=== PATIENT | male | born 1950 | race Caucasian/White ===

== ENCOUNTER 2018-01-22 19:12 | Emergency (ER) | payer MEDICARE, OTHER ==
[~2018-01-22] VITALS: Ht 182.9 cm; Wt 95.3 kg
[2018-01-22] MEDS ORDERED: ONDANSETRON ODT 4 MG TAB PO ONE (20:45)
[2018-01-22] MEDS ORDERED: MORPHINE SULFATE 4 MG/ML SYR/VIAL IM ONE (20:45)
[2018-01-22] MEDS ORDERED: MORPHINE SULFATE 4 MG/ML SYR/VIAL IV ONE (21:30)
[2018-01-22] MEDS ORDERED: THIAMINE 100mg/ml INJ (200mg/2ml VIAL) IV ONE (21:30)
[2018-01-22 22:01] LABS: Basophils # (auto) 0.1 uL; Basophils % (auto) 0.6 % (0.0-2.0); Eosinophils # (auto) 0 uL; Lymphocytes # (auto) 0.6 uL; Monocytes # (auto) 0.7 uL
[2018-01-22 22:02] LABS: Eosinophils % (auto) 0.4 % (0.0-7.0); Hematocrit 46.5 % (41.0-53.0); Hemoglobin 15.9 g/dL (13.5-17.5); Lymphocytes % (auto) 5.9 % (10.0-50.0); Mean Corpuscular Hemoglobin 37.9 pg (28.0-32.0); Mean Corpuscular Hgb Conc. 34.2 g/dL (32.0-36.0); Mean Corpuscular Volume 110.8 fL (80.0-100.0); Monocytes % (auto) 7.3 % (0.0-12.0); Neutrophils # (auto) 8.2 uL; Neutrophils % (auto) 85.8 % (37.0-80.0); Nucleated Red Blood Cells % 0.2 %; Platelet Count (auto) 191 10^3/uL (140-450); Red Blood Cells 4.19 10^6/uL (4.5-5.90); Red Cell Distribution Width 14.2 % (11.8-14.3); White Blood Cell 9.5 10^3/uL (4.4-10.8)
[2018-01-22 22:23] LABS: INR 0.94 (0.9-1.15); Prothrombin Time 10.1 sec (9.27-12.13)
[2018-01-22 22:24] LABS: Albumin 3.4 g/dL (3.4-5.0); BUN/Creatinine Ratio 14.6; Calcium 8.7 mg/dL (8.5-10.1); Magnesium 1.8 mg/dL (1.6-2.6); Potassium 3.3 mmol/L (3.5-5.1)
[2018-01-22 22:30] LABS: Bilirubin, Total 0.6 mg/dL (0.2-1.0); Total Protein 6.9 g/dL (6.4-8.2)
[2018-01-22 23:34] VITALS: BP 162/98
[2018-01-23] MEDS ORDERED: cloNIDine HCL 0.1 MG TAB PO ONE (00:15)
== END 2018-01-22 23:45 | disposition short-term general hospital (02) ==
LOC: EDBD 19:12 → ER 19:22
DX: S12.110A Anterior displaced Type II dens fracture, initial encounter for closed fracture (principal); J44.9 Chronic obstructive pulmonary disease, unspecified; F10.10 Alcohol abuse, uncomplicated; V43.52XA Car driver injured in collision with other type car in traffic accident, initial encounter; Y93.89 Activity, other specified; Y92.89 Other specified places as the place of occurrence of the external cause; Y99.8 Other external cause status
CPT/HCPCS: 36415; 70450; 71045; 72125; 80053; 80320; 83735; 83880; 84484; 85025; 85379; 85610; 85730; 96372; 96374; 96375; 99285; J2270; J3411; Q0162

== ENCOUNTER 2019-03-28 13:36 | Inpatient (IN) | payer MEDICARE, OTHER ==
[~2019-03-28] VITALS: Ht 182.9 cm; Wt 95.2 kg
[2019-03-28] MEDS ORDERED: SODIUM CHLORIDE 0.9% 1,000 ML IV ONE (13:46)
[2019-03-28] MEDS ORDERED: methylPREDNISolone SOD SUCC 125 MG/2 ML VL IV ONE (14:00)
[2019-03-28] MEDS ORDERED: ALBUTEROL SULF 2.5 MG/0.5ML(0.5%) NEB SOLN NEB ONE (14:00)
[2019-03-28] MEDS ORDERED: cefTRIAXone 1GM/50ML D5W 50 ML IV ONE (14:00)
[2019-03-28] MEDS ORDERED: IPRATROPIUM BROM 0.5 MG/2.5ML INH SOL NEB ONE (14:00)
[2019-03-28 14:18] LABS: Basophils # (auto) 0.1 uL; Eosinophils # (auto) 0.1 uL; Eosinophils % (auto) 0.9 % (0.0-7.0); Hematocrit 51.4 % (41.0-53.0); Hemoglobin 17.1 g/dL (13.5-17.5); Monocytes # (auto) 0.8 uL; Monocytes % (auto) 9.9 % (0.0-12.0); White Blood Cell 8.1 10^3/uL (4.4-10.8)
[2019-03-28 14:21] LABS: Basophils % (auto) 0.7 % (0.0-2.0); Lymphocytes # (auto) 0.8 uL; Lymphocytes % (auto) 10.4 % (10.0-50.0); Mean Corpuscular Hemoglobin 36.2 pg (28.0-32.0); Mean Corpuscular Hgb Conc. 33.2 g/dL (32.0-36.0); Mean Corpuscular Volume 108.9 fL (80.0-100.0); Neutrophils # (auto) 6.4 uL; Neutrophils % (auto) 78.1 % (37.0-80.0); Nucleated Red Blood Cells % 0.1 %; Platelet Count (auto) 302 10^3/uL (140-450); Red Blood Cells 4.72 10^6/uL (4.5-5.90); Red Cell Distribution Width 14.2 % (11.8-14.3)
[2019-03-28 14:38] LABS: Albumin 3.9 g/dL (3.4-5.0); Anion Gap 5 (5-15); BUN/Creatinine Ratio 19.8; Blood Urea Nitrogen 26 mg/dL (7-18); Calcium 8.5 mg/dL (8.5-10.1); Carbon Dioxide 31 mmol/L (21-32); Chloride 104 mmol/L (98-107); GFR African American 70 mL/min; GFR Non-African American 58 mL/min; Glucose 127 mg/dL (74-106); Potassium 4.5 mmol/L (3.5-5.1); Sodium 140 mmol/L (136-145)
[2019-03-28 14:43] LABS: Alanine Aminotransferase 29 U/L (16-61); Alkaline Phosphatase 69 U/L (45-117); Aspartate Aminotransferase 21 U/L (15-37); Bilirubin, Total 0.5 mg/dL (0.2-1.0); Total Protein 7.6 g/dL (6.4-8.2)
[2019-03-28] MEDS ORDERED: traMADol HCL 50 MG TAB PO PRN (16:30)
[2019-03-28] MEDS ORDERED: PROMETHAZINE HCL 25 MG/ML 1ML IV PRN (16:30)
[2019-03-28] MEDS ORDERED: NITROGLYCERIN 0.4 MG SL TAB SL PRN (16:30)
[2019-03-28] MEDS ORDERED: ACETAMINOPHEN 500 MG TAB PO PRN (16:30)
[2019-03-28] MEDS ORDERED: ALBUTEROL SULF 2.5 MG/0.5ML(0.5%) NEB SOLN NEB PRN (16:30)
[2019-03-28] MEDS ORDERED: LORazepam 0.5 MG TAB PO PRN (16:30)
[2019-03-28] MEDS ORDERED: MORPHINE SULF INJ 2 MG/ML SYRINGE 1ML IV PRN (16:30)
[2019-03-28] MEDS ORDERED: TEMAZEPAM 15 MG CAP PO PRN (16:30)
[2019-03-28 16:40] VITALS: BP 164/83
[2019-03-28] MEDS: LEVOFLOXACIN 500MG 100 ML IV SCH (17:28)
[2019-03-28] MEDS: FUROSEMIDE 40 MG/4 ML VIAL IV SCH (17:45)
[2019-03-28] MEDS: POTASSIUM CHL 20 Meq TABLET PO SCH (17:45)
[2019-03-28] MEDS: ENALAPRIL MALEATE 2.5 MG TAB PO SCH (17:45)
[2019-03-28] MEDS: NITROGLYCERIN 0.2MG/HR TOPICAL PATCH TD SCH (17:45)
[2019-03-28] MEDS ORDERED: methylPREDNISolone SOD SUCC 40 MG/ML VL IV SCH (18:00)
--- NOTE | 2019-03-28 18:00 | NUR ---
Telemetry admit from [facility] admitted to Telemetry unit after SBAR received. Patient oriented to YU LARA, primary RN, unit, room, bed, and unit policies regarding patient care and visiting hours. Patient now on continuous telemetry monitoring, tele box # 61. Patient placed on bedside oxygen 3 L NC, and encouraged to call if they need something. All questions and concerns addressed, patient verbalized understanding. Vitals: BP 178/95, HR 76, RR 20, 02 96, 98.2, 0/10 P. Patient reports no sob at this time, will continue to monitor. Addendum: 03/29/19 at 0714 by YU LARA RN Pt reports he has not had flu or pneumonia vaccine in the last 5 years.
[2019-03-28 18:36] VITALS: BP 178/95
[2019-03-28] MEDS: ALBUTEROL SULF 2.5 MG/0.5ML(0.5%) NEB SOLN NEB SCH (19:26)
[2019-03-28] MEDS: IPRATROPIUM BROM 0.5 MG/2.5ML INH SOL NEB SCH (19:27)
--- NOTE | 2019-03-28 19:29 | NUR ---
RT NOTE PT WAS SEEN BY RT FOR HHN TX. PT TOLERATES WELL VIA MASK. NO ADVERSE REACTION NOTED. CONT ORDERED Addendum: 03/28/19 at 1929 by Chelsie Espinal RT Amended: Links added.
--- NOTE | 2019-03-28 19:35 | NUR ---
Opening Shift Note Assumed care of patient, awake and alert. No S/S of distress/SOB or pain. Instructed on POC and to call for assist PRN, will continue to monitor for changes Q1hr and PRN.
--- NOTE | 2019-03-28 19:42 | NUR ---
ENDORSED CARE TO NIGHT ANTONINO DE LA GARZA. FREDERIC NOTIFIED OF PT BP, URINALYSIS AND RESPIRATORY CULTURE NEEDED, AND LEVAQUIN NEEDS TO BE RESTARTED.
[2019-03-28 19:58] VITALS: BP 178/95
[2019-03-28] MEDS ORDERED: cloNIDine HCL 0.1 MG TAB PO ONE (21:15)
[2019-03-28] MEDS: CARVEDILOL 3.125 MG TAB PO SCH (21:48)
[2019-03-28] MEDS: methylPREDNISolone SOD SUCC 40 MG/ML VL IV SCH (21:49)
[2019-03-28 22:38] VITALS: BP 157/82
--- NOTE | 2019-03-29 00:29 | NUR ---
RT NOTE PT WAS SEEN BY RT FOR HHN TX. PT WAS SLEEPING BUT EASILY AWAKENED. PT STATES NO TREATMENT IS NEEDED AT THIS TIME AND WILL TAKE ONE AGAIN IN THE MORNING. SITTER AT BEDSIDE WILL CALL IF TX NEEDED. HR 86, RR 16, BS CLEAR/DIM, POX 94% ON 2L NASAL CANNULA. ANTONINO DE LA GARZA NOTIFIED AND WILL CALL IF TX NEEDED BEFORE NEXT ROUNDS Addendum: 03/29/19 at 0056 by Chelsie Espinal RT Amended: Links added.
[2019-03-29] MEDS ORDERED: TIOT1AER2 IN (01:29)
[2019-03-29] MEDS ORDERED: ALBUAER3 IN (01:29)
[2019-03-29 05:39] VITALS: BP 146/77
[2019-03-29] MEDS ORDERED: INFLUENZA QUAD 2019-2020 0.5ml SYRG IM ONE (06:00)
[2019-03-29 06:23] LABS: Urine Bacteria FEW /hpf (None Seen); Urine Blood Negative /uL (Negative); Urine Specific Gravity 1.019 (1.001-1.035); Urine WBC 1 /hpf (0 - 3)
[2019-03-29] MEDS: IPRATROPIUM BROM 0.5 MG/2.5ML INH SOL NEB SCH (06:24)
[2019-03-29] MEDS: ALBUTEROL SULF 2.5 MG/0.5ML(0.5%) NEB SOLN NEB SCH (06:24)
[2019-03-29] MEDS ORDERED: PNEUMOCOCCAL VACC POLYS 25 MCG/0.5 ML VIAL IM ONE (07:15)
--- NOTE | 2019-03-29 07:48 | NUR ---
PT RESTING IN BED, NO DISTRESS NOTED. PT UPDATED ON PLAN OF CARE. PT REPORTS NO PAIN OR SOB AT THIS TIME. RESTARTED FLUID, IV BEGAN LEAKING. IV DC'D AND PRESSURE DRESSING APPLIED. PT REPORTS HE DOES NOT WANT ANOTHER IV. PT REPORTS HE IS LEAVING TODAY, "NO MATTER WHAT." HE REPORTS, HE "HAS THINGS TO DO AT HOME." EDUCATED PATIENT HE NEEDS AN ABX IV THIS MORNING, PT REFUSED IV AGAIN. WILL REQUEST PO ABX FROM MD. PT ENCOURAGED TO USE CALL LIGHT PRN, WILL CONTINUE TO MONITOR.
[2019-03-29 09:21] VITALS: BP 163/94
[2019-03-29] MEDS ORDERED: ENOXAPARIN SOD 40 MG/0.4 ML SYRINGE SC SCH (10:00)
[2019-03-29] MEDS: FUROSEMIDE 40 MG/4 ML VIAL IV SCH (10:00)
[2019-03-29] MEDS ORDERED: PANTOPRAZOLE 40 MG TAB PO SCH (10:00)
[2019-03-29] MEDS: LEVOFLOXACIN 500MG 100 ML IV SCH (10:00)
[2019-03-29] MEDS: methylPREDNISolone SOD SUCC 40 MG/ML VL IV SCH (10:00)
[2019-03-29] MEDS: CARVEDILOL 3.125 MG TAB PO SCH (10:07)
[2019-03-29] MEDS: POTASSIUM CHL 20 Meq TABLET PO SCH (10:07)
[2019-03-29] MEDS: ENALAPRIL MALEATE 2.5 MG TAB PO SCH (10:07)
[2019-03-29] MEDS: NITROGLYCERIN 0.2MG/HR TOPICAL PATCH TD SCH (10:09)
--- NOTE | 2019-03-29 10:25 | NUR ---
Pt reports he has to leave by 11 am. Pt reports he will not stay any longer. He reports,"I have to try and stop my house from foreclosing today, I have until 4 pm." Pt requesting taxi voucher. Encouraged pt to stay and wait for doctor. Pt refusing. Dr. Nation notified and aware. Called warehouse incentive selector, no answer, will try again.
--- NOTE | 2019-03-29 11:05 | NUR ---
DR VAZQUEZ SAW PATIENT AND DISCUSSED POC. NEW ORDERS FOR MEDICATIONS AND DISCHARGE. CALLED HOUSE ROSIO HASKINS AND REQUESTED TAXI VOUCHER. JOZEF REPORTS PT CAN HAVE A BUS PASS. WILL CONTINUE TO MONITOR.
[2019-03-29 11:27] VITALS: BP 129/112
--- NOTE | 2019-03-29 12:00 | NUR ---
Discharge instructions given as ordered. Encourage to follow up with PMD as instructed. All questions and concerns addressed. Patient verbalized understanding. Medication reconciliation form completed and copy given to patient. Needed vaccines given. IV removed with catheter intact, pressure dressing applied. Telemetry unit returned to ICU. Patient taken to vehicle via wheelchair with all personal belongings, accompanied by staff. No distress noted at time of departure. Addendum: 03/29/19 at 1300 by YU LARA RN Pt refused social service consult. He reports he is in a hurry to go.
--- NOTE | 2019-03-29 12:00 | NUR ---
PT 02 ON RA IS 90%.
--- NOTE | 2019-03-31 08:56 | NUR ---
Weekend successfactors consultant-I did not receive a page regarding the social service consult on this patient.
== END 2019-03-29 13:22 | disposition home or self-care (01) | DRG 202 ==
LOC: EDBD 13:36 → EDUNIT# 13:36 → EDSEX 13:36 → ER 13:49 → TELE 13:50 → TELE-WESTW 18:10
PROVIDERS: ADMIT Internal Medicine; ATTEND Internal Medicine
DX: J20.9 Acute bronchitis, unspecified (principal); J44.1 Chronic obstructive pulmonary disease with (acute) exacerbation; J44.0 Chronic obstructive pulmonary disease with (acute) lower respiratory infection; I50.9 Heart failure, unspecified; E66.3 Overweight; F17.210 Nicotine dependence, cigarettes, uncomplicated; H35.30 Unspecified macular degeneration; Z86.73 Personal history of transient ischemic attack (TIA), and cerebral infarction without residual deficits; Z68.28 Body mass index [BMI] 28.0-28.9, adult; Z79.899 Other long term (current) drug therapy
CPT/HCPCS: 36415; 71045; 80053; 81001; 82550; 83880; 84484; 85025; 93005; 94640; 96365; 96375; G0378; J0696; J1956

== ENCOUNTER 2019-04-27 23:10 | Inpatient (IN) | payer OTHER ==
[~2019-04-27] VITALS: Ht 182.9 cm; Wt 71.2 kg
[~2019-04-27 23:10] MED LIST: ALBUAER3 IN; TIOT1AER2 IN
[2019-04-27 23:44] LABS: Basophils # (auto) 0.1 uL; Eosinophils # (auto) 0.2 uL; Nucleated Red Blood Cells % 0.1 %; White Blood Cell 8.5 10^3/uL (4.4-10.8)
[2019-04-27 23:46] LABS: Basophils % (auto) 0.8 % (0.0-2.0); Eosinophils % (auto) 2.7 % (0.0-7.0); Hematocrit 48.3 % (41.0-53.0); Lymphocytes # (auto) 1.2 uL; Lymphocytes % (auto) 14.1 % (10.0-50.0); Mean Corpuscular Hemoglobin 36.4 pg (28.0-32.0); Mean Corpuscular Hgb Conc. 35.2 g/dL (32.0-36.0); Mean Corpuscular Volume 103.5 fL (80.0-100.0); Monocytes % (auto) 11.4 % (0.0-12.0); Platelet Count (auto) 246 10^3/uL (140-450); Red Blood Cells 4.67 10^6/uL (4.5-5.90); Red Cell Distribution Width 14.3 % (11.8-14.3)
[2019-04-28] VITALS (8 sets, daily range): BP systolic 128–157; BP diastolic 62–119
[2019-04-28 00:01] LABS: Albumin 3.4 g/dL (3.4-5.0); BUN/Creatinine Ratio 21.4; Calcium 8.7 mg/dL (8.5-10.1); Potassium 3.9 mmol/L (3.5-5.1)
[2019-04-28] MEDS ORDERED: methylPREDNISolone SOD SUCC 125 MG/2 ML VL ONE (00:05)
[2019-04-28 00:06] LABS: Bilirubin, Total 0.4 mg/dL (0.2-1.0); Total Protein 6.9 g/dL (6.4-8.2)
[2019-04-28] MEDS ORDERED: IPRATROPIUM BROM 0.5 MG/2.5ML INH SOL NEB ONE (00:15)
[2019-04-28] MEDS ORDERED: ALBUTEROL SULF 2.5 MG/0.5ML(0.5%) NEB SOLN NEB ONE (00:15)
[2019-04-28] MEDS ORDERED: methylPREDNISolone SOD SUCC 125 MG/2 ML VL IV ONE (00:15)
[2019-04-28] MEDS: SODIUM CHLORIDE 0.9% 1,000 ML IV SCH ×2 (01:29→17:19)
[2019-04-28] MEDS ORDERED: hydrALAZINE HCL 25 MG TAB PO PRN (01:30)
[2019-04-28] MEDS ORDERED: ONDANSETRON HCL 4 MG/2 ML VIAL IV PRN (01:30)
[2019-04-28] MEDS ORDERED: DOCUSATE SOD 100 MG CAP PO PRN (01:30)
[2019-04-28] MEDS ORDERED: ACETAMINOPHEN 325 MG TAB PO PRN (01:30)
[2019-04-28 03:51] LABS: Urine Bacteria FEW /hpf (None Seen); Urine Blood Negative /uL (Negative); Urine Mucus FEW (None Seen); Urine Specific Gravity 1.018 (1.001-1.035); Urine WBC 1 /hpf (0 - 3)
[2019-04-28] MEDS: methylPREDNISolone SOD SUCC 40 MG/ML VL IV SCH ×3 (05:30→21:37)
[2019-04-28 09:12] LABS: Basophils # (auto) 0.1 uL; Eosinophils # (auto) 0 uL; Lymphocytes # (auto) 0.3 uL; Mean Corpuscular Hemoglobin 36.8 pg (28.0-32.0); Monocytes # (auto) 0.1 uL
[2019-04-28 09:14] LABS: Basophils % (auto) 1.1 % (0.0-2.0); Hematocrit 47.8 % (41.0-53.0); Hemoglobin 16.7 g/dL (13.5-17.5); Lymphocytes % (auto) 3.4 % (10.0-50.0); Mean Corpuscular Hgb Conc. 35.1 g/dL (32.0-36.0); Mean Corpuscular Volume 104.9 fL (80.0-100.0); Monocytes % (auto) 0.7 % (0.0-12.0); Neutrophils # (auto) 7.6 uL; Neutrophils % (auto) 94.8 % (37.0-80.0); Platelet Count (auto) 238 10^3/uL (140-450); Red Blood Cells 4.55 10^6/uL (4.5-5.90); Red Cell Distribution Width 14.2 % (11.8-14.3)
[2019-04-28 09:41] LABS: Calcium 8.4 mg/dL (8.5-10.1); Potassium 4.3 mmol/L (3.5-5.1)
[2019-04-28 09:43] LABS: BUN/Creatinine Ratio 24.1
[2019-04-28] MEDS: ALBUTEROL SULF 2.5 MG/0.5ML(0.5%) NEB SOLN NEB SCH ×3 (15:11→22:00)
[2019-04-28] MEDS: IPRATROPIUM BROM 0.5 MG/2.5ML INH SOL NEB SCH ×3 (15:11→22:00)
[2019-04-28] MEDS: LEVOFLOXACIN 500MG 100 ML IV SCH (16:01)
[2019-04-28] MEDS ORDERED: hydrALAZINE HCL 20 MG/ML VL IV PRN (21:15)
[2019-04-28] MEDS ORDERED: amLODIPine BESYLATE 5 MG TAB PO ONE (21:15)
[2019-04-29 05:00] VITALS: BP 158/89
[2019-04-29] MEDS: methylPREDNISolone SOD SUCC 40 MG/ML VL IV SCH (05:44)
[2019-04-29] MEDS: IPRATROPIUM BROM 0.5 MG/2.5ML INH SOL NEB SCH ×2 (05:46→09:40)
[2019-04-29] MEDS: ALBUTEROL SULF 2.5 MG/0.5ML(0.5%) NEB SOLN NEB SCH ×2 (05:46→09:40)
[2019-04-29 05:48] VITALS: BP 146/88
[2019-04-29 06:37] LABS: Hemoglobin 15.3 g/dL (13.5-17.5)
[2019-04-29 06:40] LABS: Hematocrit 45.3 % (41.0-53.0); Mean Corpuscular Hemoglobin 36.2 pg (28.0-32.0); Mean Corpuscular Hgb Conc. 33.8 g/dL (32.0-36.0); Mean Corpuscular Volume 107.1 fL (80.0-100.0); Platelet Count (auto) 229 10^3/uL (140-450); Red Blood Cells 4.23 10^6/uL (4.5-5.90); White Blood Cell 11.7 10^3/uL (4.4-10.8)
[2019-04-29 06:48] LABS: BUN/Creatinine Ratio 27.3; Basophils % (manual) 0 (0.0-2.0); Blast Cells 0; Calcium 8.1 mg/dL (8.5-10.1); Eosinophils % (manual) 0 (0-7); Magnesium 2.3 mg/dL (1.6-2.6); Metamyelocytes % 0; Myelocytes % 0; Potassium 4.3 mmol/L (3.5-5.1); Promyelocytes % 0; Reactive Lymphocytes 0
[2019-04-29 08:11] LABS: Band Neutrophils % (manual) 2; Lymphocytes % (manual) 3 (10.0-50.0); Monocytes % (manual) 6 (0-12)
[2019-04-29 09:00] VITALS: BP 156/79
[2019-04-29] MEDS: LEVOFLOXACIN 500MG 100 ML IV SCH (09:22)
[2019-04-29] MEDS ORDERED: amLODIPine BESYLATE 5 MG TAB PO SCH (10:00)
[2019-04-29] MEDS: SODIUM CHLORIDE 0.9% 1,000 ML IV SCH (10:04)
== END 2019-04-29 13:10 | disposition home or self-care (01) | DRG 202 ==
LOC: EDBD 23:10 → ER 23:14 → OVERFLOW 23:15 → EAST 04-28 02:45
PROVIDERS: ADMIT Hospitalist; ATTEND Internal Medicine
DX: J20.9 Acute bronchitis, unspecified (principal); J45.901 Unspecified asthma with (acute) exacerbation; J44.1 Chronic obstructive pulmonary disease with (acute) exacerbation; J44.0 Chronic obstructive pulmonary disease with (acute) lower respiratory infection; I50.9 Heart failure, unspecified; F17.210 Nicotine dependence, cigarettes, uncomplicated; F41.9 Anxiety disorder, unspecified
CPT/HCPCS: 36415; 70450; 71045; 80048; 80053; 80320; 81001; 83735; 83880; 84484; 85007; 85025; 85027; 87081; 93005; 94640; 96361; 96374; 97163; G0378; J1956

== ENCOUNTER 2019-05-10 07:52 | Inpatient (IN) | payer OTHER ==
[~2019-05-10] VITALS: Ht 182.9 cm; Wt 101.7 kg
[2019-05-10] MEDS ORDERED: ASPirin 81 mg TAB PO ONE (08:30)
[2019-05-10] MEDS ORDERED: SODIUM CHLORIDE 0.9% 1,000 ML IV ONE ×2 (08:30→14:45)
[2019-05-10 08:57] LABS: Basophils # (auto) 0.1 uL; Eosinophils # (auto) 0.3 uL; Lymphocytes # (auto) 0.9 uL; Monocytes # (auto) 0.7 uL
[2019-05-10 08:59] LABS: Basophils % (auto) 1.3 % (0.0-2.0); Eosinophils % (auto) 2.9 % (0.0-7.0); Hematocrit 48.2 % (41.0-53.0); Hemoglobin 16.6 g/dL (13.5-17.5); Lymphocytes % (auto) 9.2 % (10.0-50.0); Mean Corpuscular Hemoglobin 36.5 pg (28.0-32.0); Mean Corpuscular Hgb Conc. 34.4 g/dL (32.0-36.0); Mean Corpuscular Volume 106.1 fL (80.0-100.0); Neutrophils # (auto) 8.1 uL; Neutrophils % (auto) 79.6 % (37.0-80.0); Platelet Count (auto) 220 10^3/uL (140-450); Red Blood Cells 4.54 10^6/uL (4.5-5.90); Red Cell Distribution Width 14.2 % (11.8-14.3); White Blood Cell 10.2 10^3/uL (4.4-10.8)
[2019-05-10] MEDS ORDERED: methylPREDNISolone SOD SUCC 125 MG/2 ML VL IV ONE (09:00)
[2019-05-10 09:30] LABS: Albumin 3.2 g/dL (3.4-5.0); Anion Gap 8 (5-15); Blood Urea Nitrogen 21 mg/dL (7-18); Calcium 8.4 mg/dL (8.5-10.1); Carbon Dioxide 27 mmol/L (21-32); Chloride 105 mmol/L (98-107); Glucose 136 mg/dL (74-106); Potassium 4.2 mmol/L (3.5-5.1); Sodium 140 mmol/L (136-145)
[2019-05-10 09:32] LABS: Alanine Aminotransferase 22 U/L (16-61); Aspartate Aminotransferase 13 U/L (15-37); BUN/Creatinine Ratio 15.4; GFR African American 67 mL/min; GFR Non-African American 55 mL/min
[2019-05-10 09:42] LABS: Alkaline Phosphatase 60 U/L (45-117); Bilirubin, Total 0.6 mg/dL (0.2-1.0)
[2019-05-10 09:46] LABS: Partial Thromboplastin Time 28.2 sec (23.64-32.05)
[2019-05-10 11:35] LABS: Urine Bacteria NONE SEEN /hpf (None Seen); Urine Blood Negative /uL (Negative); Urine Hyaline Cast MANY /lpf (0 - 2); Urine Mucus MODERATE (None Seen); Urine Specific Gravity 1.033 (1.001-1.035); Urine WBC 8 /hpf (0 - 3)
[2019-05-10] MEDS ORDERED: IOHEXOL 350 MG/ML 100ML IJ ONE (12:10)
[2019-05-10] MEDS: ENOXAPARIN SOD 40 MG/0.4 ML SYRINGE SC SCH (13:37)
[2019-05-10] MEDS: LEVOFLOXACIN 500MG 100 ML IV SCH (14:02)
[2019-05-10] MEDS ORDERED: DOXYCYCLINE 100MG/250ML 250 ML IV ONE (14:45)
[2019-05-10] MEDS ORDERED: NITROGLYCERIN 0.4 MG SL TAB SL PRN (14:45)
[2019-05-10] MEDS ORDERED: MORPHINE SULF INJ 2 MG/ML SYRINGE 1ML IV PRN (14:45)
[2019-05-10] MEDS ORDERED: NICOTINE 7MG/24HR TOPICAL PATCH TD ONE ×2 (14:45→15:00)
[2019-05-10 16:25] VITALS: BP 150/104
[2019-05-10] MEDS ORDERED: methylPREDNISolone SOD SUCC 125 MG/2 ML VL IV SCH (17:00)
[2019-05-10] MEDS: methylPREDNISolone SOD SUCC 40 MG/ML VL IV SCH (17:30)
[2019-05-10] MEDS: LEVALBUTEROL HCL 1.25 MG/3 ML NEB NEB SCH (19:32)
[2019-05-10] MEDS: IPRATROPIUM BROM 0.5 MG/2.5ML INH SOL NEB PRN (19:33)
--- NOTE | 2019-05-10 20:30 | NUR ---
Telemetry admit from [facility] admitted to Telemetry unit after SBAR received. Patient oriented to JEIMY LEE RN primary RN, unit, room, bed, and unit policies regarding patient care and visiting hours. Patient now on continuous telemetry monitoring, tele box #58 and telemetry reading on arrival to unit is SR. Patient placed on bedside oxygen, weighed by bedscale and encouraged to call if they need something. All questions and concerns addressed, patient verbalized understanding.
[2019-05-10] MEDS: GABAPENTIN 100 MG CAP PO SCH (21:56)
[2019-05-10 22:17] VITALS: BP 130/76
[2019-05-11] MEDS: methylPREDNISolone SOD SUCC 40 MG/ML VL IV SCH ×2 (00:36→08:56)
--- NOTE | 2019-05-11 02:50 | NUR ---
RT paged: Patient complained of shortness of breath and difficulty breathing. RN paged respiratory therapy to administer PRN breathing treatment. RN will continue to monitor.
[2019-05-11] MEDS: IPRATROPIUM BROM 0.5 MG/2.5ML INH SOL NEB PRN ×4 (03:37→18:58)
--- NOTE | 2019-05-11 04:55 | NUR ---
Patient refused AM lab draw: Patient expressed to RN that he was very upset that he could not sleep with the nurse and PRORATION CLERK rounding on patient and taking vital signs. Patient expressed that he does not want to be woken up again this morning and does not want blood work to be done until after 8am. RN apologized to patient and provided teaching to patient on care that is being provided. Patient verbalized understanding but still did not want his blood work until after 8am.
[2019-05-11] MEDS: GABAPENTIN 100 MG CAP PO SCH ×2 (05:32→14:07)
[2019-05-11 05:41] VITALS: BP 127/78
--- NOTE | 2019-05-11 06:12 | NUR ---
RN received call from Gennio that patients Tele leads had to be fixed but patient is asleep and patient made it very clear to RN not to wake him up if he is asleep. Patient was very upset earlier and cursing but was able to be calmed down and returned to bed in a safe manner. RN will continue to assess patient and note when he is awake to properly adjust his Tele leads.
[2019-05-11] MEDS: LEVALBUTEROL HCL 1.25 MG/3 ML NEB NEB SCH ×4 (06:33→18:58)
[2019-05-11] MEDS: LEVOFLOXACIN 500MG 100 ML IV SCH (08:56)
[2019-05-11] MEDS: ENOXAPARIN SOD 40 MG/0.4 ML SYRINGE SC SCH (08:57)
[2019-05-11] MEDS: PANTOPRAZOLE 40 MG TAB PO SCH (08:57)
[2019-05-11 09:23] VITALS: BP 125/70
[2019-05-11] MEDS ORDERED: ENOXAPARIN SOD 40 MG/0.4 ML SYRINGE SC SCH (10:00)
[2019-05-11 11:05] LABS: Basophils # (auto) 0 uL; Basophils % (auto) 0.1 % (0.0-2.0); Eosinophils # (auto) 0 uL
[2019-05-11 11:06] LABS: Hematocrit 41.8 % (41.0-53.0); Hemoglobin 14.3 g/dL (13.5-17.5); Lymphocytes # (auto) 0.3 uL; Lymphocytes % (auto) 3.1 % (10.0-50.0); Mean Corpuscular Hgb Conc. 34.3 g/dL (32.0-36.0); Mean Corpuscular Volume 105.1 fL (80.0-100.0); Monocytes # (auto) 0.4 uL; Monocytes % (auto) 4.2 % (0.0-12.0); Neutrophils % (auto) 92.6 % (37.0-80.0); Nucleated Red Blood Cells % 0.1 %; Platelet Count (auto) 197 10^3/uL (140-450); Red Blood Cells 3.97 10^6/uL (4.5-5.90); White Blood Cell 10.8 10^3/uL (4.4-10.8)
[2019-05-11 11:35] LABS: BUN/Creatinine Ratio 20.3; Calcium 7.7 mg/dL (8.5-10.1); Potassium 4.3 mmol/L (3.5-5.1)
[2019-05-11 12:30] VITALS: BP 134/71
--- NOTE | 2019-05-11 16:40 | NUR ---
DR. Teddy CASTILLO AT BEDSIDE THE PHYSICIAN SPOKE TO THE PATIENT REGARDING HIS USE OF ALCOHOL AND THAT HE WOULD BE PRESCRIBED MEDICATION TO HELP HIM WITH THE WITHDRAWAL SYMPTOMS. THE PATIENT STATED HE WOULD "LIKE TO TAKE CARE OF THE ALCOHOL ON HIS OWN." HE REFUSED THE MEDICATION TO HELP HIM WITH ANY WITHDRAWAL SYMPTOMS.
[2019-05-11 17:20] VITALS: BP 127/87
--- NOTE | 2019-05-11 19:00 | NUR ---
Opening Shift Note Assumed care of patient, awake and alert. No S/S of distress/SOB or pain. Instructed on POC and to call for assist PRN, will continue to monitor for changes Q1hr and PRN.
[2019-05-11] MEDS ORDERED: predniSONE 20 MG TAB PO ONE (20:00)
[2019-05-11 22:00] VITALS: BP 155/70
[2019-05-12] MEDS: LEVALBUTEROL HCL 1.25 MG/3 ML NEB NEB SCH ×3 (00:48→11:53)
--- NOTE | 2019-05-12 04:00 | NUR ---
Patient refused AM lab draw again: Patient expressed to RN that he was very upset that he could not sleep with the nurse and LEADER TIER rounding on patient and taking vital signs just as last night. Patient expressed that he does not want to be woken up again this morning and does not want blood work to be done until after 8am as yesterday. RN apologized to patient and provided reinforced teaching to patient on care that is being provided. Patient verbalized understanding but still did not want his blood work until after 8am.
--- NOTE | 2019-05-12 04:39 | NUR ---
RN received call from OR that patient is off Tele. Patient verbalized he does not want to be bothered, patient told RN "Go away, the sight of you is pissing me off". RN allowed patient his space and time to calm down. RN to attempt to place Tele back on when patient calms down.
[2019-05-12 05:11] VITALS: BP 158/90
[2019-05-12 09:06] VITALS: BP 125/64
[2019-05-12] MEDS ORDERED: predniSONE 20 MG TAB PO SCH (10:00)
[2019-05-12] MEDS: LEVOFLOXACIN 500MG 100 ML IV SCH (10:37)
[2019-05-12] MEDS: PANTOPRAZOLE 40 MG TAB PO SCH (10:37)
[2019-05-12] MEDS: ENOXAPARIN SOD 40 MG/0.4 ML SYRINGE SC SCH (10:37)
[2019-05-12 11:23] LABS: Potassium 4.3 mmol/L (3.5-5.1)
[2019-05-12 11:28] LABS: Eosinophils # (auto) 0 uL; Eosinophils % (auto) 0.1 % (0.0-7.0); Lymphocytes # (auto) 0.5 uL; Neutrophils # (auto) 10.6 uL; White Blood Cell 11.9 10^3/uL (4.4-10.8)
[2019-05-12 11:30] LABS: Basophils # (auto) 0 uL; Basophils % (auto) 0.2 % (0.0-2.0); Hematocrit 44.3 % (41.0-53.0); Lymphocytes % (auto) 4.3 % (10.0-50.0); Mean Corpuscular Hemoglobin 35.7 pg (28.0-32.0); Mean Corpuscular Hgb Conc. 33.7 g/dL (32.0-36.0); Mean Corpuscular Volume 105.8 fL (80.0-100.0); Monocytes # (auto) 0.8 uL; Monocytes % (auto) 6.9 % (0.0-12.0); Neutrophils % (auto) 88.5 % (37.0-80.0); Nucleated Red Blood Cells % 0.1 %; Platelet Count (auto) 230 10^3/uL (140-450); Red Blood Cells 4.19 10^6/uL (4.5-5.90); Red Cell Distribution Width 14.5 % (11.8-14.3)
[2019-05-12 11:32] LABS: BUN/Creatinine Ratio 22.9; Calcium 8.6 mg/dL (8.5-10.1)
[2019-05-12 13:00] VITALS: BP 161/68
[2019-05-12] MEDS ORDERED: LEVO500T21 PO (13:44)
[2019-05-12] MEDS ORDERED: PRED20TA2 PO (13:44)
[2019-05-12] MEDS ORDERED: LEVA1.2518 NEB (13:44)
[2019-05-12] MEDS ORDERED: IPR002IS NEB (13:44)
--- NOTE | 2019-05-12 14:30 | NUR ---
AMA Note AIDA BASS states they want to leave the hospital Against Medical Advice (AMA). Patient encouraged to stay for further treatment/stabilization. Teddy Guillory MD notified of patient's wishes. Patient advised of the risks and benefits of leaving AMA. Patient verbalized understanding. Patient encouraged to return to the ER if symptoms do not improve or worsen.
--- NOTE | 2019-05-12 16:20 | NUR ---
Received Social Service consult to see pt about his Alcohol Abuse. Unfortunately, the pt left the hospital prior to been seen. Pt signed out against medical advice.
== END 2019-05-12 14:28 | disposition left against medical advice (07) | DRG 189 ==
LOC: EDBD 07:52 → ER 07:57 → TELE 07:58 → TELE-WESTW 20:34
PROVIDERS: ADMIT Internal Medicine; ATTEND Internal Medicine
DX: J96.01 Acute respiratory failure with hypoxia (principal); E44.1 Mild protein-calorie malnutrition; J98.11 Atelectasis; Z53.29 Procedure and treatment not carried out because of patient's decision for other reasons; D75.89 Other specified diseases of blood and blood-forming organs; F10.10 Alcohol abuse, uncomplicated; F17.210 Nicotine dependence, cigarettes, uncomplicated; I10 Essential (primary) hypertension; I49.3 Ventricular premature depolarization; J43.9 Emphysema, unspecified; R73.9 Hyperglycemia, unspecified; Z86.73 Personal history of transient ischemic attack (TIA), and cerebral infarction without residual deficits; Z71.6 Tobacco abuse counseling; Z68.30 Body mass index [BMI] 30.0-30.9, adult; Z79.899 Other long term (current) drug therapy; Y90.9 Presence of alcohol in blood, level not specified
CPT/HCPCS: 36415; 71045; 71046; 71275; 80048; 80053; 81001; 83735; 84443; 84484; 85025; 85379; 85610; 85730; 87040; 87070; 87081; 87205; 87804; 93306; 94640; 96365; 96375; G0378; J1956; J3490

== ENCOUNTER → 2019-08-05 | Emergency (ER) | payer OTHER ==
[~2019-08-05] VITALS: Ht 182.9 cm; Wt 102.1 kg
[~2019-08-05] MED LIST changes: +ALBUTEROL SULF 2.5 MG/0.5ML(0.5%) NEB SOLN HHN ONE; +DOXY-346 PO; +IPR002IS NEB; +IPRATROPIUM BROM 0.5 MG/2.5ML INH SOL HHN ONE; +LEVA1.2518 NEB; +methylPREDNISolone SOD SUCC 125 MG/2 ML VL IV ONE
[2019-08-05 03:49] LABS: Basophils # (auto) 0.1 10 ^3/uL (0-0.2); Basophils % (auto) 1.2 % (0.0-2.0); Eosinophils # (auto) 0.2 10 ^3/uL (0-0.8); Hematocrit 42.8 % (41.0-53.0); Hemoglobin 14.4 g/dL (13.5-17.5); Lymphocytes # (auto) 1.2 10 ^3/uL (0.4-5.4); Lymphocytes % (auto) 20.5 % (10.0-50.0); Mean Corpuscular Hemoglobin 36.7 pg (28.0-32.0); Mean Corpuscular Hgb Conc. 33.6 g/dL (32.0-36.0); Mean Corpuscular Volume 109.3 fL (80.0-100.0); Monocytes # (auto) 0.8 10 ^3/uL (0-1.3); Monocytes % (auto) 14.1 % (0.0-12.0); Neutrophils # (auto) 3.6 10 ^3/uL (1.6-8.6); Neutrophils % (auto) 60.2 % (37.0-80.0); Nucleated Red Blood Cells % 0.1 %; Platelet Count (auto) 283 10^3/uL (140-450); Red Blood Cells 3.92 10^6/uL (4.5-5.90); Red Cell Distribution Width 17.5 % (11.8-14.3)
[2019-08-05 04:04] LABS: INR 1.01 (0.9-1.15); Partial Thromboplastin Time 30.2 sec (23.64-32.05)
[2019-08-05 04:09] LABS: Albumin 3.3 g/dL (3.4-5.0); Anion Gap 5 (5-15); Calcium 8.6 mg/dL (8.5-10.1); Carbon Dioxide 31 mmol/L (21-32); Chloride 106 mmol/L (98-107); Glucose 139 mg/dL (74-106); Magnesium 2.2 mg/dL (1.6-2.6); Potassium 4.2 mmol/L (3.5-5.1); Sodium 142 mmol/L (136-145)
[2019-08-05 04:15] LABS: Alanine Aminotransferase 20 U/L (16-61); Alkaline Phosphatase 57 U/L (45-117); Aspartate Aminotransferase 15 U/L (15-37); BUN/Creatinine Ratio 11.6; Bilirubin, Total 0.3 mg/dL (0.2-1.0); Blood Urea Nitrogen 14 mg/dL (7-18); GFR African American 77 mL/min; GFR Non-African American 63 mL/min; Total Protein 7.1 g/dL (6.4-8.2)
[2019-08-05 08:03] VITALS: BP 139/63
== END | disposition home or self-care (01) ==
LOC: EDUNIT# 02:40 → EDBD 02:48 → ER 02:54
DX: J44.1 Chronic obstructive pulmonary disease with (acute) exacerbation (principal); J20.9 Acute bronchitis, unspecified; F17.210 Nicotine dependence, cigarettes, uncomplicated; Z71.6 Tobacco abuse counseling
CPT/HCPCS: 36415; 71045; 80053; 83735; 83880; 84484; 85025; 85610; 85730; 93005; 94644; 96374; 99285; J2930; J7644

== ENCOUNTER 2019-08-14 16:33 | Inpatient (IN) | payer OTHER ==
[~2019-08-14] VITALS: Ht 182.9 cm; Wt 99.8 kg
[~2019-08-14 16:33] MED LIST changes: -ALBUTEROL SULF 2.5 MG/0.5ML(0.5%) NEB SOLN HHN ONE; -IPRATROPIUM BROM 0.5 MG/2.5ML INH SOL HHN ONE; -methylPREDNISolone SOD SUCC 125 MG/2 ML VL IV ONE
[2019-08-14] MEDS ORDERED: methylPREDNISolone SOD SUCC 125 MG in SODIUM CHL 0.9% 100 ML IV ONE (17:00)
[2019-08-14] MEDS ORDERED: ALBUTEROL SULF 2.5 MG/0.5ML(0.5%) NEB SOLN NEB ONE (17:00)
[2019-08-14] MEDS ORDERED: IPRATROPIUM BROM 0.5 MG/2.5ML INH SOL NEB ONE (17:00)
[2019-08-14] MEDS ORDERED: methylPREDNISolone SOD SUCC 125 MG/2 ML VL IV ONE (17:15)
[2019-08-14 17:24] LABS: Basophils # (auto) 0.1 10 ^3/uL (0-0.2); Monocytes # (auto) 0.9 10 ^3/uL (0-1.3); Monocytes % (auto) 8.8 % (0.0-12.0); Neutrophils # (auto) 8.2 10 ^3/uL (1.6-8.6)
[2019-08-14 17:26] LABS: Basophils % (auto) 0.7 % (0.0-2.0); Eosinophils # (auto) 0.1 10 ^3/uL (0-0.8); Eosinophils % (auto) 1.3 % (0.0-7.0); Hematocrit 45.5 % (41.0-53.0); Hemoglobin 15.5 g/dL (13.5-17.5); Lymphocytes % (auto) 9.7 % (10.0-50.0); Mean Corpuscular Hemoglobin 36.8 pg (28.0-32.0); Neutrophils % (auto) 79.5 % (37.0-80.0); Platelet Count (auto) 315 10^3/uL (140-450); Red Blood Cells 4.21 10^6/uL (4.5-5.90); Red Cell Distribution Width 16.9 % (11.8-14.3); White Blood Cell 10.3 10^3/uL (4.4-10.8)
[2019-08-14 17:39] LABS: Albumin 3.4 g/dL (3.4-5.0); Anion Gap 3 (5-15); Aspartate Aminotransferase 12 U/L (15-37); BUN/Creatinine Ratio 19.6; Blood Urea Nitrogen 21 mg/dL (7-18); Calcium 8.8 mg/dL (8.5-10.1); Carbon Dioxide 32 mmol/L (21-32); Chloride 104 mmol/L (98-107); GFR African American 88 mL/min; GFR Non-African American 73 mL/min; Glucose 136 mg/dL (74-106); Potassium 3.5 mmol/L (3.5-5.1); Sodium 139 mmol/L (136-145)
[2019-08-14 17:52] LABS: Alanine Aminotransferase 21 U/L (16-61); Alkaline Phosphatase 48 U/L (45-117); Bilirubin, Total 0.5 mg/dL (0.2-1.0); Total Protein 6.6 g/dL (6.4-8.2)
[2019-08-14] MEDS ORDERED: IOHEXOL 350 MG/ML 100ML IJ ONE (18:09)
[2019-08-14] MEDS ORDERED: ENOXAPARIN SOD 100 MG/1 ML SYRINGE SC ONE (18:15)
[2019-08-14] MEDS ORDERED: ALBUTEROL SULF 2.5 MG/0.5ML(0.5%) NEB SOLN NEB PRN (19:15)
[2019-08-14] MEDS ORDERED: traMADol HCL 50 MG TAB PO PRN (19:15)
[2019-08-14] MEDS ORDERED: TEMAZEPAM 15 MG CAP PO PRN (19:15)
[2019-08-14] MEDS ORDERED: LACTULOSE 20Gm/30ML SOLN PO PRN (19:15)
[2019-08-14] MEDS ORDERED: BACLOFEN 10 MG TAB PO PRN (19:15)
[2019-08-14] MEDS ORDERED: DEXTROSE (50%) 50ML SYRG IV PRN (19:15)
[2019-08-14] MEDS ORDERED: ACETAMINOPHEN 500 MG TAB PO PRN (19:15)
[2019-08-14] MEDS ORDERED: PROMETHAZINE HCL 25 MG/ML 1ML IV PRN (19:15)
[2019-08-14] MEDS ORDERED: NITROGLYCERIN 0.4 MG SL TAB SL PRN (19:15)
[2019-08-14] MEDS ORDERED: OSELTAMIVIR 75 MG CAP PO ONE (19:15)
[2019-08-14] MEDS ORDERED: MORPHINE SULF INJ 2 MG/ML SYRINGE 1ML IV PRN (19:15)
[2019-08-14 19:19] VITALS: BP 168/82
[2019-08-14] MEDS: methylPREDNISolone SOD SUCC 40 MG/ML VL IV SCH (19:33)
[2019-08-14] MEDS: DOXYCYCLINE 100MG/250ML 250 ML IV SCH (19:34)
[2019-08-14 20:40] VITALS: BP 165/93
[2019-08-14] MEDS: IPRATROPIUM BROM 0.5 MG/2.5ML INH SOL NEB SCH (21:33)
[2019-08-14] MEDS: ALBUTEROL SULF 2.5 MG/0.5ML(0.5%) NEB SOLN NEB SCH (21:33)
[2019-08-14 22:00] VITALS: BP 165/93
[2019-08-14] MEDS ORDERED: OSELTAMIVIR 75 MG CAP PO SCH (22:00)
--- NOTE | 2019-08-14 22:15 | NUR ---
Telemetry admit from [facility] admitted to Telemetry unit after SBAR received. Patient oriented to ISABELA PRESLEY RN primary RN, unit, room, bed, and unit policies regarding patient care and visiting hours. Patient now on continuous telemetry monitoring, tele box #25 and telemetry reading on arrival to unit is NSR. Upon arrival to the floor, no s/s of SOB or distress noted and patient denies pain at this time. Patient A&O x4. Patient placed on bedside oxygen, weighed by bedscale and encouraged to call if they need something. All questions and concerns addressed, patient verbalized understanding. Note:
[2019-08-14] MEDS: ACCU-CHEK COMFORT CURVE STRIP VI SCH (22:31)
[2019-08-14 22:57] VITALS: BP 148/81
[2019-08-15] VITALS (7 sets, daily range): BP systolic 130–166; BP diastolic 73–89
--- NOTE | 2019-08-15 01:45 | NUR ---
HOSPITALIST PAGED PATIENT COMPLAINED OF SMALL AMOUNT OF BRIGHT RED BLOOD IN STOOL. VSS. NO COMPLAINTS OF PAIN. PATIENT IS ASYMPTOMATIC. HOSPITALIST PAGED. WILL CONTINUE TO MONITOR.
--- NOTE | 2019-08-15 02:45 | NUR ---
HOSPITALIST CALLED BACK, NEW ORDERS GIVEN, READ BACK, AND VERIFIED.
--- NOTE | 2019-08-15 05:35 | NUR ---
STUNT PERSON REPORTED HIGH BP. REASSESSED BP 160/70, HOSPITALIST PAGED.
[2019-08-15 06:11] LABS: Eosinophils # (auto) 0 10 ^3/uL (0-0.8)
[2019-08-15 06:13] LABS: Basophils # (auto) 0.1 10 ^3/uL (0-0.2); Basophils % (auto) 0.8 % (0.0-2.0); Hematocrit 42.9 % (41.0-53.0); Hemoglobin 14.5 g/dL (13.5-17.5); Lymphocytes # (auto) 0.3 10 ^3/uL (0.4-5.4); Lymphocytes % (auto) 4.2 % (10.0-50.0); Mean Corpuscular Hemoglobin 36.5 pg (28.0-32.0); Mean Corpuscular Hgb Conc. 33.8 g/dL (32.0-36.0); Mean Corpuscular Volume 108.1 fL (80.0-100.0); Monocytes # (auto) 0.2 10 ^3/uL (0-1.3); Monocytes % (auto) 2.7 % (0.0-12.0); Neutrophils # (auto) 7.2 10 ^3/uL (1.6-8.6); Neutrophils % (auto) 92.3 % (37.0-80.0); Platelet Count (auto) 261 10^3/uL (140-450); Red Blood Cells 3.97 10^6/uL (4.5-5.90); Red Cell Distribution Width 17.2 % (11.8-14.3); White Blood Cell 7.9 10^3/uL (4.4-10.8)
[2019-08-15] MEDS: IPRATROPIUM BROM 0.5 MG/2.5ML INH SOL NEB SCH ×3 (06:29→18:44)
[2019-08-15] MEDS: ALBUTEROL SULF 2.5 MG/0.5ML(0.5%) NEB SOLN NEB SCH ×3 (06:29→18:44)
[2019-08-15 06:37] LABS: Calcium 8.4 mg/dL (8.5-10.1)
[2019-08-15 06:39] LABS: BUN/Creatinine Ratio 19.4
[2019-08-15] MEDS: ACCU-CHEK COMFORT CURVE STRIP VI SCH ×4 (06:50→22:00)
[2019-08-15] MEDS ORDERED: cloNIDine HCL 0.1 MG TAB PO ONE (07:00)
--- NOTE | 2019-08-15 07:30 | NUR ---
Opening Shift Note Assumed care of patient, awake and alert. No S/S of distress/SOB or pain. Instructed on POC and to call for assist PRN, will continue to monitor for changes Q1hr and PRN.
[2019-08-15] MEDS: methylPREDNISolone SOD SUCC 40 MG/ML VL IV SCH ×2 (07:33→19:07)
[2019-08-15] MEDS: DOXYCYCLINE 100MG/250ML 250 ML IV SCH ×2 (07:33→19:07)
[2019-08-15] MEDS ORDERED: ENOXAPARIN SOD 40 MG/0.4 ML SYRINGE SC SCH (10:00)
[2019-08-15] MEDS ORDERED: PANTOPRAZOLE 40 MG/10 ML VIAL INJ IV SCH (10:00)
--- NOTE | 2019-08-15 10:00 | NUR ---
bloody stool noted. small amount of dark red mucoid like bowel movement.
--- NOTE | 2019-08-15 19:30 | NUR ---
Opening Shift Note Assumed care of patient, awake and alert. No S/S of distress/SOB or pain. Bed in lowest locked position, side rails up x2, call light within reach. Patient denies bloody stool at this time, reports last stool was soft, brown, and formed with no blood. Instructed on POC and to call for assist PRN, will continue to monitor for changes Q1hr and PRN.
--- NOTE | 2019-08-15 22:56 | NUR ---
Dr. Teddy Hurley at bedside, new orders received, read back and verified, will implement and continue to monitor.
[2019-08-15] MEDS ORDERED: DOXY-346 PO (23:08)
--- NOTE | 2019-08-16 00:20 | NUR ---
Discharge Discharge instructions given as ordered. Encourage to follow up with PMD as instructed. All questions and concerns addressed. Patient verbalized understanding. All discharge paperwork and instructional material completed and copy given to patient. IV removed by Jadyn RN with catheter intact, pressure dressing applied. Telemetry unit returned to ICU and monitor technicians informed. Wristbands removed. Patient ambulated to front lobby independently with steady gait noted with all personal belongings, accompanied by this RN. Taxi voucher ready for patient in ER admitting and staff aware taxi en route. No distress noted at time of departure.
== END 2019-08-16 00:21 | disposition home or self-care (01) | DRG 189 ==
LOC: ER 16:33 → TELE 16:34 → TELE-CENTR 20:50
PROVIDERS: ADMIT Internal Medicine; ATTEND Internal Medicine
DX: J96.21 Acute and chronic respiratory failure with hypoxia (principal); J44.1 Chronic obstructive pulmonary disease with (acute) exacerbation; K62.5 Hemorrhage of anus and rectum; J45.909 Unspecified asthma, uncomplicated; E66.9 Obesity, unspecified; Z82.49 Family history of ischemic heart disease and other diseases of the circulatory system; Z82.3 Family history of stroke; Z68.29 Body mass index [BMI] 29.0-29.9, adult; F41.9 Anxiety disorder, unspecified
CPT/HCPCS: 36415; 36600; 71045; 71275; 80048; 80053; 82805; 82962; 83036; 83880; 84484; 85025; 85379; 87081; 87804; 93005; 94640; 96372; 96374; 99291; C9113; G0378; J3490

== ENCOUNTER 2019-09-19 09:21 | Inpatient (IN) | payer OTHER ==
[~2019-09-19] VITALS: Ht 182.9 cm; Wt 101.0 kg
[~2019-09-19 09:21] MED LIST changes: -ALBUAER3 IN
[2019-09-19] MEDS ORDERED: cefTRIAXone 1GM/50ML D5W 50 ML IV ONE ×2 (09:38→09:45)
[2019-09-19] MEDS ORDERED: AZITHROMYCIN 500MG/ 250ML 250 ML IV ONE ×2 (09:38→09:45)
[2019-09-19] MEDS ORDERED: SODIUM CHLORIDE 0.9% 1,000 ML IV ONE (10:00)
[2019-09-19 10:14] LABS: Eosinophils # (auto) 0.4 10 ^3/uL (0-0.8); Lymphocytes # (auto) 1.2 10 ^3/uL (0.4-5.4); Monocytes # (auto) 0.7 10 ^3/uL (0-1.3); Nucleated Red Blood Cells % 0.1 %
[2019-09-19 10:16] LABS: Basophils # (auto) 0.1 10 ^3/uL (0-0.2); Basophils % (auto) 0.8 % (0.0-2.0); Eosinophils % (auto) 6.7 % (0.0-7.0); Hemoglobin 16.9 g/dL (13.5-17.5); Lymphocytes % (auto) 18.7 % (10.0-50.0); Mean Corpuscular Hemoglobin 36.4 pg (28.0-32.0); Mean Corpuscular Hgb Conc. 33.9 g/dL (32.0-36.0); Mean Corpuscular Volume 107.6 fL (80.0-100.0); Monocytes % (auto) 10.6 % (0.0-12.0); Neutrophils # (auto) 4.1 10 ^3/uL (1.6-8.6); Neutrophils % (auto) 63.2 % (37.0-80.0); Platelet Count (auto) 308 10^3/uL (140-450); Red Blood Cells 4.64 10^6/uL (4.5-5.90); White Blood Cell 6.5 10^3/uL (4.4-10.8)
[2019-09-19 10:30] LABS: INR 1.03 (0.9-1.15); Partial Thromboplastin Time 27.8 sec (23.64-32.05)
[2019-09-19] MEDS ORDERED: ALBUTEROL SULF 2.5 MG/0.5ML(0.5%) NEB SOLN NEB ONE (10:30)
[2019-09-19] MEDS ORDERED: IPRATROPIUM BROM 0.5 MG/2.5ML INH SOL NEB ONE (10:30)
[2019-09-19 10:55] VITALS: BP 136/79
[2019-09-19] MEDS ORDERED: ACETAMINOPHEN 500 MG TAB PO PRN (14:00)
[2019-09-19] MEDS ORDERED: ALBUTEROL SULF HFA 90MCG INH 200DOSE IN SCH (14:00)
[2019-09-19] MEDS: ASCORBIC ACID 1,000 MG TAB PO SCH (14:14)
[2019-09-19] MEDS: CHOLECALCIFEROL (VITD3) 1,000IU=25mCg TAB PO SCH (14:14)
[2019-09-19] MEDS ORDERED: ZINC SULFATE 220mg CAP or TAB PO ONE (14:15)
[2019-09-19] MEDS ORDERED: NITROGLYCERIN 0.4 MG SL TAB SL PRN (14:15)
[2019-09-19] MEDS ORDERED: MORPHINE SULF INJ 2 MG/ML SYRINGE 1ML IV PRN (14:15)
[2019-09-19] MEDS: methylPREDNISolone SOD SUCC 40 MG/ML VL IV SCH ×2 (14:15→22:39)
[2019-09-19 15:24] LABS: CRP High Sensitivity 0.24 mg/dL (< 0.3); Magnesium 2.2 mg/dL (1.6-2.6)
--- NOTE | 2019-09-19 16:20 | NUR ---
Telemetry admit from ER AIDA BASS admitted to Telemetry unit after SBAR received. Patient oriented to WILLY DAWSON RN primary RN, [facility],249 room,b bed, and unit policies regarding patient care and visiting hours. Patient now on continuous telemetry monitoring, tele box #15 and telemetry reading on arrival to unit is sr 80. Patient placed on bedside oxygen, weighed by bedscale and encouraged to call if they need something. All questions and concerns addressed, patient verbalized understanding.
[2019-09-19 17:02] VITALS: BP 165/91
--- NOTE | 2019-09-19 17:30 | NUR ---
Received phone call from hotel housekeeper patient Covid 19 results negative
[2019-09-19 17:50] VITALS: BP 156/94
--- NOTE | 2019-09-19 18:26 | NUR ---
[facility] SB[facility] given to Elsa MUÑIZ.
--- NOTE | 2019-09-19 18:40 | NUR ---
TRANSFER PATIENT BROUGHT VIA WHEELCHAIR TO ROOM 284B AND ORIENTED TO PRIMARY RN, ROOM, AND UNIT. PATIENT PLACED ON 4L NC AND TELEMETRY BOX REQUESTED. PATIENT IMMEDIATELY BELLIGERENT AND YELLING AT STAFF. VERBALIZED TO PATIENT THAT THIS BEHAVIOR WILL NOT BE TOLERATED AND HE WILL REMAIN RESPECTFUL TOWARDS STAFF. PATIENT UPDATED ON POC AND ALL QUESTIONS ANSWERED. BED IS IN LOWEST, LOCKED POSITION WITH SIDE RAILS UP X2 AND CALL LIGHT WITHIN REACH. WILL CONTINUE TO MONITOR.
[2019-09-19 18:57] LABS: Alanine Aminotransferase 32 U/L (16-61); Alkaline Phosphatase 62 U/L (45-117); Anion Gap 11 (5-15); Aspartate Aminotransferase 31 U/L (15-37); BUN/Creatinine Ratio 19.7; Blood Urea Nitrogen 23 mg/dL (7-18); Calcium 8.7 mg/dL (8.5-10.1); Carbon Dioxide 27 mmol/L (21-32); Chloride 104 mmol/L (98-107); GFR African American 79 mL/min; GFR Non-African American 66 mL/min; Glucose 126 mg/dL (74-106); Potassium 5.1 mmol/L (3.5-5.1); Sodium 142 mmol/L (136-145)
[2019-09-19 18:58] LABS: Albumin 3.7 g/dL (3.4-5.0); Bilirubin, Total 0.5 mg/dL (0.2-1.0); Total Protein 7.7 g/dL (6.4-8.2)
--- NOTE | 2019-09-19 19:10 | NUR ---
Opening Shift Note Assumed care of patient, awake and alert. No S/S of distress/SOB or pain. Instructed on POC and to call for assist PRN, will continue to monitor for changes Q1hr and PRN. PATIENT RESTING IN BED, BED IN LOWEST POSITION, SIDE RALES UP X2, CALL LIGHT WITHIN REACH.
[2019-09-19] MEDS ORDERED: IOHEXOL 300 MG/ML 100ML BOTTLE IJ ONE (19:29)
[2019-09-19 20:30] VITALS: BP 130/77
[2019-09-19 22:14] VITALS: BP 130/77
[2019-09-19] MEDS: ALBUTEROL SULF 2.5 MG/0.5ML(0.5%) NEB SOLN NEB SCH (22:24)
[2019-09-20 04:50] VITALS: BP 171/97
[2019-09-20] MEDS: methylPREDNISolone SOD SUCC 40 MG/ML VL IV SCH ×4 (05:32→21:24)
[2019-09-20 06:37] LABS: Basophils # (auto) 0 10 ^3/uL (0-0.2); Basophils % (auto) 0.3 % (0.0-2.0); Eosinophils # (auto) 0 10 ^3/uL (0-0.8); Hematocrit 47.4 % (41.0-53.0); Hemoglobin 15.9 g/dL (13.5-17.5); Lymphocytes # (auto) 0.4 10 ^3/uL (0.4-5.4); Lymphocytes % (auto) 7.8 % (10.0-50.0); Mean Corpuscular Hemoglobin 35.9 pg (28.0-32.0); Mean Corpuscular Hgb Conc. 33.5 g/dL (32.0-36.0); Mean Corpuscular Volume 107.2 fL (80.0-100.0); Monocytes # (auto) 0.1 10 ^3/uL (0-1.3); Monocytes % (auto) 2.5 % (0.0-12.0); Neutrophils # (auto) 4.4 10 ^3/uL (1.6-8.6); Neutrophils % (auto) 89.4 % (37.0-80.0); Nucleated Red Blood Cells % 0.1 %; Platelet Count (auto) 287 10^3/uL (140-450); Red Blood Cells 4.42 10^6/uL (4.5-5.90); Red Cell Distribution Width 15.5 % (11.8-14.3); White Blood Cell 4.9 10^3/uL (4.4-10.8)
[2019-09-20] MEDS: ALBUTEROL SULF 2.5 MG/0.5ML(0.5%) NEB SOLN NEB SCH ×6 (06:58→22:54)
[2019-09-20] MEDS ORDERED: SODIUM CHLORIDE 0.9 % NEB SOLN 3ML NEB ONE ×2 (07:06→13:32)
--- NOTE | 2019-09-20 07:30 | NUR ---
Opening Shift Note Assumed care of patient, awake and alert. No S/S of distress/SOB or pain. Instructed on POC and to call for assist PRN, will continue to monitor for changes Q1hr and PRN.
[2019-09-20 08:00] VITALS: BP 151/89
[2019-09-20 09:00] VITALS: BP 160/78
[2019-09-20] MEDS ORDERED: ZINC SULFATE 220mg CAP or TAB PO SCH (10:00)
[2019-09-20] MEDS: ASCORBIC ACID 1,000 MG TAB PO SCH (10:00)
[2019-09-20] MEDS ORDERED: AZITHROMYCIN 500MG/D5WorNS 250ml IV SCH (10:00)
[2019-09-20] MEDS: AZITHROMYCIN 500MG/ 250ML 250 ML IV SCH (10:37)
[2019-09-20] MEDS: ENOXAPARIN SOD 40 MG/0.4 ML SYRINGE SC SCH (10:38)
[2019-09-20] MEDS: CHOLECALCIFEROL (VITD3) 1,000IU=25mCg TAB PO SCH (10:38)
[2019-09-20] MEDS: NICOTINE 21MG/24 HR TOPICAL PATCH TD SCH (10:39)
[2019-09-20 13:00] VITALS: BP 141/89
[2019-09-20] MEDS: IPRATROPIUM BROM 0.5 MG/2.5ML INH SOL NEB SCH ×5 (13:50→22:54)
--- NOTE | 2019-09-20 14:19 | NUR ---
IV insertion IV access obtained, via clean sterile technique by inserting 22 gauge catheter at right forearm after 1 attempt. IV secured properly. No trauma to site. Patient tolerated well.
[2019-09-20] MEDS ORDERED: ALBUTEROL SULF 2.5 MG/0.5ML(0.5%) NEB SOLN NEB PRN (14:30)
[2019-09-20 17:00] VITALS: BP 158/69
[2019-09-20 22:00] VITALS: BP 129/81
[2019-09-21] MEDS: IPRATROPIUM BROM 0.5 MG/2.5ML INH SOL NEB SCH ×6 (03:02→22:18)
[2019-09-21] MEDS: ALBUTEROL SULF 2.5 MG/0.5ML(0.5%) NEB SOLN NEB SCH ×6 (03:02→22:18)
[2019-09-21 05:28] LABS: Basophils # (auto) 0 10 ^3/uL (0-0.2); Basophils % (auto) 0.2 % (0.0-2.0); Eosinophils # (auto) 0 10 ^3/uL (0-0.8); Monocytes # (auto) 0.5 10 ^3/uL (0-1.3); Nucleated Red Blood Cells % 0.1 %; Red Cell Distribution Width 15.8 % (11.8-14.3)
[2019-09-21 05:31] LABS: Hematocrit 46.1 % (41.0-53.0); Hemoglobin 15.6 g/dL (13.5-17.5); Lymphocytes # (auto) 0.3 10 ^3/uL (0.4-5.4); Lymphocytes % (auto) 3.1 % (10.0-50.0); Mean Corpuscular Hemoglobin 36.1 pg (28.0-32.0); Mean Corpuscular Hgb Conc. 33.9 g/dL (32.0-36.0); Mean Corpuscular Volume 106.5 fL (80.0-100.0); Monocytes % (auto) 5.7 % (0.0-12.0); Neutrophils # (auto) 7.5 10 ^3/uL (1.6-8.6); Platelet Count (auto) 265 10^3/uL (140-450); Red Blood Cells 4.33 10^6/uL (4.5-5.90); White Blood Cell 8.3 10^3/uL (4.4-10.8)
[2019-09-21] MEDS: methylPREDNISolone SOD SUCC 40 MG/ML VL IV SCH ×3 (05:44→21:15)
[2019-09-21 05:54] LABS: BUN/Creatinine Ratio 25.2; Calcium 8.6 mg/dL (8.5-10.1); Magnesium 2.1 mg/dL (1.6-2.6); Potassium 4.3 mmol/L (3.5-5.1)
[2019-09-21 06:00] VITALS: BP 156/74
--- NOTE | 2019-09-21 07:38 | NUR ---
Opening Shift Note Assumed care of patient, awake and alert. No S/S of distress/SOB or Pain reported. Instructed on POC and to call for assist PRN, will continue to monitor for changes Q1hr and PRN.
[2019-09-21 09:00] VITALS: BP 126/76
[2019-09-21] MEDS: AZITHROMYCIN 500MG/ 250ML 250 ML IV SCH (09:20)
[2019-09-21] MEDS: NICOTINE 21MG/24 HR TOPICAL PATCH TD SCH (09:21)
[2019-09-21] MEDS: ENOXAPARIN SOD 40 MG/0.4 ML SYRINGE SC SCH (09:21)
--- NOTE | 2019-09-21 09:54 | NUR ---
IV insertion IV access obtained, via clean sterile technique by inserting 22 gauge catheter at LEFT FOREARM after 2 attempt(s). IV secured properly. No trauma to site. Patient tolerated well. IV removal IV DC'd with clean sterile technique, catheter fully intact. Pressure dressing applied to site. Patient tolerated well.
[2019-09-21 13:00] VITALS: BP 137/72
--- NOTE | 2019-09-21 13:24 | NUR ---
ROUNDING MD Marcelo REYNOLDS AT BEDSIDE. ALL QUESTIONS AND CONCERNS ADDRESSED AT THIS TIME.
[2019-09-21] MEDS: guaiFENesin 200 MG/10 ML UD PO PRN (15:52)
[2019-09-21 17:00] VITALS: BP 157/87
[2019-09-21 22:00] VITALS: BP 149/90
[2019-09-22] MEDS: IPRATROPIUM BROM 0.5 MG/2.5ML INH SOL NEB SCH ×3 (02:17→10:00)
[2019-09-22] MEDS: ALBUTEROL SULF 2.5 MG/0.5ML(0.5%) NEB SOLN NEB SCH ×3 (02:17→10:00)
[2019-09-22 05:45] VITALS: BP 152/68
[2019-09-22] MEDS: methylPREDNISolone SOD SUCC 40 MG/ML VL IV SCH (05:50)
--- NOTE | 2019-09-22 06:04 | NUR ---
IV insertion IV access obtained, via clean sterile technique by inserting 22 gauge catheter at RIGHT FOREARM after 1 attempt(s). IV secured properly. No trauma to site. Patient tolerated well. NOTE: IV removal IV DC'd ON LEFT FOREARM with clean sterile technique, catheter fully intact. Pressure dressing applied to site. Patient tolerated well. NOTE:
--- NOTE | 2019-09-22 07:45 | NUR ---
Morning note Patient resting in bed with even and unlabored respirations, no distress noted. Instructed patient on POC, fall precautions and to call for assistance as needed. Patient verbalized understanding. Fall precautions in place with call light within reach.
[2019-09-22] MEDS: AZITHROMYCIN 500MG/ 250ML 250 ML IV SCH (08:20)
[2019-09-22] MEDS: ENOXAPARIN SOD 40 MG/0.4 ML SYRINGE SC SCH (08:21)
[2019-09-22] MEDS: NICOTINE 21MG/24 HR TOPICAL PATCH TD SCH (08:21)
[2019-09-22] MEDS: guaiFENesin 200 MG/10 ML UD PO PRN (08:27)
[2019-09-22 08:50] VITALS: BP 153/82
--- NOTE | 2019-09-22 10:31 | NUR ---
was at bedside - Dr. Harrison This RN was at bedside.
--- NOTE | 2019-09-22 10:48 | NUR ---
Pulse ox 85% on room air after ambulation Patient had noted dyspnea. Respirations labored. Patient placed on 2LPM NC. Pulse ox 94%. Respirations become even and unlabored, no distress noted. Addendum: 09/22/19 at 1058 by Lakeisha Ken RN Notified Dr. Harrison. verbalized understanding. Patient has supplemental oxygen at home. Dr. Harrison to let this RN know if patient will receive supplemental portable oxygen to bedside.
[2019-09-22 11:05] VITALS: BP 149/66
--- NOTE | 2019-09-22 11:10 | NUR ---
Patient refusing portable supplemental oxygen Patient threw his personal cell phone on the hospital bed and stated "Bullshit! I'm not taking it. You guys are wasting your time. I'll be fine. I'll use by oxygen that I have at home already. I'm not using it. I'm not going through that humiliation of carrying that thing around!" Education provided. Patient verbalized understanding and stated "I just have a little chest cold that has caused all of this! I'll stick with the oxygen that I have at home. I'll be fine. You guys are wasting your time. I'm not going to take it!" Updated Dr. Harrison. verbalized understanding. Patient to be discharged home per MD order.
--- NOTE | 2019-09-22 12:04 | NUR ---
Discharge Discharge education and paperwork provided to the patient per MD order. Patient verbalized understanding. Instructed patient on scheduled follow up appointment and new prescription. patient verbalized understanding. Prescription faxed to [facility]. Instructed patient to use supplemental oxygen all the time per MD order. Patient stated "I don't need it. I'm not going to do it!" Respirations even and unlabored, no distress noted. IV removed with clean technique, catheter intact. Dressing applied. Patient tolerated well, no trauma to site. Telemonitor removed. Patient reports having all personal belongings. Patient requesting transportation home. Taxi voucher provided by
--- NOTE | 2019-09-22 12:10 | NUR ---
Contacted [facility] ETA 30 minutes.
--- NOTE | 2019-09-22 12:26 | NUR ---
Portable supplemental oxygen delivered to bedside Patient accepted delivery.
--- NOTE | 2019-09-22 12:36 | NUR ---
Patient ambulated to nursing station requesting to leave Informed patient that [facility] has not called that they have arrived. Patient stated "I don't care. I'll wait down stairs." Patient not wearing supplemental oxygen. Patient has labored breathing. Instructed patient to apply supplemental oxygen. Patient verbalized understanding. This RN applied supplemental oxygen. Patient's breathing improved. Patient instructed to pickle pumper prescription at [facility] in the hospital lobby. Patient verbalized understanding. Patient placed in a wheelchair and taken to hospital lobby, accompanied by staff member. Respirations even and unlabored, no distress noted. Patient reports having all personal belongings.
--- NOTE | 2019-09-22 12:55 | NUR ---
RE: Inhaler prescriptions [facility] notified this RN that patient is requesting a prescription for his home nebulizer and a prescription for his home Spiriva inhaler. This RN notified Dr. Harrison. Order received and read back to verify. Patient requested prescriptions be called to his preferred pharmacy. This RN called 2 prescriptions into patient's preferred pharmacy.
--- NOTE | 2019-09-22 14:55 | NUR ---
Assessment Patient is a 69-year-old male who is alert and oriented. Prior to admission patient lived home alone and functioned independently. Patient informed me he can care for his own ADLs. Per patient he will return home to his prior living arrangements post discharge and family will transport him home. Patient informed me he has a nebulizer and home oxygen for home use. Patient stated he needed a new portable oxygen. Advised patient there is a Social Service order for oxygen at 2 l/min by continuous nasal cannula home. Informed patient he has a right to participate in all discharge planning. Patient verbalized understanding and agreed to discharge plan. Placed call to Assistant Professor Of Physics Anaid with [facility]. CYNDI Worrell advised me she followed up with SG and requested portable oxygen to be deliver to Front Lobby. ANTONINO Suazo was informed. Addendum: 09/22/19 at 1456 by BARBY RM SS Amended: Links added.
== END 2019-09-22 12:40 | disposition home or self-care (01) | DRG 189 ==
LOC: ER 09:21 → TELE 09:22 → TELE-EAST 16:19 → TELE-WESTW 18:33
PROVIDERS: ADMIT Internal Medicine; ATTEND Internal Medicine
DX: J96.20 Acute and chronic respiratory failure, unspecified whether with hypoxia or hypercapnia (principal); J44.1 Chronic obstructive pulmonary disease with (acute) exacerbation; F17.210 Nicotine dependence, cigarettes, uncomplicated; Z99.81 Dependence on supplemental oxygen; Z91.19 Patient's noncompliance with other medical treatment and regimen; Z03.818 Encounter for observation for suspected exposure to other biological agents ruled out; Z79.899 Other long term (current) drug therapy; Z79.51 Long term (current) use of inhaled steroids; Z82.3 Family history of stroke; Z82.49 Family history of ischemic heart disease and other diseases of the circulatory system; Z71.6 Tobacco abuse counseling
CPT/HCPCS: 36415; 36600; 71045; 71260; 80048; 80053; 82728; 82805; 83735; 83880; 84484; 85025; 85379; 85610; 85730; 86141; 87070; 87804; 87880; 93005; 94640; 99291; G0378; J0696

== ENCOUNTER 2019-10-06 19:46 | Inpatient (IN) | payer OTHER ==
[~2019-10-06] VITALS: Ht 182.9 cm; Wt 98.6 kg
[~2019-10-06 19:46] MED LIST changes: -DOXY-346 PO
[2019-10-06] MEDS ORDERED: methylPREDNISolone SOD SUCC 125 MG/2 ML VL IV ONE (20:30)
[2019-10-06] MEDS ORDERED: IPRATROPIUM BROM 0.5 MG/2.5ML INH SOL NEB ONE (20:30)
[2019-10-06] MEDS ORDERED: ALBUTEROL SULF 2.5 MG/0.5ML(0.5%) NEB SOLN NEB ONE (20:30)
[2019-10-06 20:46] LABS: Basophils # (auto) 0.1 10 ^3/uL (0-0.2); Eosinophils # (auto) 0.1 10 ^3/uL (0-0.8); Lymphocytes # (auto) 0.9 10 ^3/uL (0.4-5.4); Neutrophils # (auto) 6.9 10 ^3/uL (1.6-8.6); Red Cell Distribution Width 15.3 % (11.8-14.3)
[2019-10-06 20:47] LABS: Basophils % (auto) 0.9 % (0.0-2.0); Eosinophils % (auto) 0.8 % (0.0-7.0); Hematocrit 50.4 % (41.0-53.0); Hemoglobin 16.7 g/dL (13.5-17.5); Lymphocytes % (auto) 10.7 % (10.0-50.0); Mean Corpuscular Hemoglobin 34.7 pg (28.0-32.0); Mean Corpuscular Hgb Conc. 33.1 g/dL (32.0-36.0); Mean Corpuscular Volume 104.7 fL (80.0-100.0); Monocytes # (auto) 0.7 10 ^3/uL (0-1.3); Monocytes % (auto) 7.6 % (0.0-12.0); Nucleated Red Blood Cells % 0.1 %; Platelet Count (auto) 284 10^3/uL (140-450); Red Blood Cells 4.82 10^6/uL (4.5-5.90); White Blood Cell 8.7 10^3/uL (4.4-10.8)
[2019-10-06 21:02] LABS: Alanine Aminotransferase 35 U/L (16-61); Albumin 3.8 g/dL (3.4-5.0); Anion Gap 12 (5-15); Blood Urea Nitrogen 27 mg/dL (7-18); Calcium 8.7 mg/dL (8.5-10.1); Carbon Dioxide 24 mmol/L (21-32); Chloride 102 mmol/L (98-107); Glucose 74 mg/dL (74-106); Potassium 4.4 mmol/L (3.5-5.1); Sodium 138 mmol/L (136-145)
[2019-10-06 21:07] LABS: Alkaline Phosphatase 69 U/L (45-117); Aspartate Aminotransferase 27 U/L (15-37); BUN/Creatinine Ratio 24.1; Bilirubin, Total 0.7 mg/dL (0.2-1.0); GFR African American 84 mL/min; GFR Non-African American 69 mL/min; Total Protein 7.7 g/dL (6.4-8.2)
[2019-10-06] MEDS ORDERED: levoFLOXacin 500MG 100 ML IV ONE (21:30)
[2019-10-06] MEDS ORDERED: SODIUM CHLORIDE 0.9% 1,000 ML IV SCH (21:51)
[2019-10-06] MEDS: methylPREDNISolone SOD SUCC 125 MG/2 ML VL IV SCH (22:00)
[2019-10-06] MEDS: ALBUTEROL SULF HFA 90MCG INH 200DOSE IN SCH (22:00)
[2019-10-06] MEDS ORDERED: cloNIDine HCL 0.1 MG TAB PO PRN (22:00)
[2019-10-06] MEDS ORDERED: NITROGLYCERIN 0.4 MG SL TAB SL PRN (22:15)
[2019-10-06] MEDS ORDERED: ONDANSETRON HCL 4 MG/2 ML VIAL IV PRN (22:15)
[2019-10-06] MEDS ORDERED: MORPHINE SULF INJ 2 MG/ML SYRINGE 1ML IV PRN (22:15)
[2019-10-06] MEDS ORDERED: ACETAMINOPHEN 325 MG TAB PO PRN (22:15)
[2019-10-06] MEDS ORDERED: TEMAZEPAM 15 MG CAP PO PRN (22:15)
[2019-10-06 22:41] LABS: CRP High Sensitivity 0.38 mg/dL (< 0.3)
[2019-10-06 23:15] VITALS: BP 177/73
[2019-10-06 23:18] VITALS: BP 155/93
--- NOTE | 2019-10-06 23:18 | NUR ---
Telemetry admit from ER AIDA BASS admitted to Telemetry. Patient oriented to ETHAN LEO RN primary RN, unit, room, bed, and unit policies regarding patient care and visiting hours. Patient now on continuous telemetry monitoring, tele box #6 and telemetry reading on arrival to unit is. Patient placed on bedside oxygen, and encouraged to call if they need something. All questions and concerns addressed, patient verbalized understanding. Note:
--- NOTE | 2019-10-07 01:44 | NUR ---
REGARDING OXYGEN: PATIENT REPORTS USING HOME OXYGEN 2L NASAL CANNULA ON OCCASION. PATIENT TITRATED DOWN TO 1L NASAL CANNULA. OXYGEN SATURATIONS AT 95%.
--- NOTE | 2019-10-07 03:45 | NUR ---
IV insertion IV access obtained, via clean sterile technique by inserting 20 gauge catheter at LAC after 1 attempt(s). IV secured properly. No trauma to site. Patient tolerated well. IV TO RAC REMOVED ACCIDENTLY BY PATIENT. NOTE:
[2019-10-07 04:23] LABS: Basophils # (auto) 0 10 ^3/uL (0-0.2); Basophils % (auto) 0.6 % (0.0-2.0); Eosinophils # (auto) 0 10 ^3/uL (0-0.8); Hemoglobin 15.6 g/dL (13.5-17.5); Lymphocytes # (auto) 0.2 10 ^3/uL (0.4-5.4); Lymphocytes % (auto) 3.7 % (10.0-50.0); Mean Corpuscular Hemoglobin 35.7 pg (28.0-32.0); Mean Corpuscular Volume 105.1 fL (80.0-100.0); Monocytes # (auto) 0.1 10 ^3/uL (0-1.3); Monocytes % (auto) 1.2 % (0.0-12.0); Neutrophils # (auto) 5.5 10 ^3/uL (1.6-8.6); Neutrophils % (auto) 94.5 % (37.0-80.0); Nucleated Red Blood Cells % 0.1 %; Platelet Count (auto) 233 10^3/uL (140-450); Red Blood Cells 4.37 10^6/uL (4.5-5.90); Red Cell Distribution Width 15.3 % (11.8-14.3); White Blood Cell 5.8 10^3/uL (4.4-10.8)
[2019-10-07 04:41] LABS: Albumin 3.4 g/dL (3.4-5.0); Calcium 8.2 mg/dL (8.5-10.1); Potassium 4.6 mmol/L (3.5-5.1)
[2019-10-07 04:44] LABS: Bilirubin, Total 0.7 mg/dL (0.2-1.0); Total Protein 7.1 g/dL (6.4-8.2)
[2019-10-07 05:00] VITALS: BP 186/94
[2019-10-07] MEDS: ALBUTEROL SULF HFA 90MCG INH 200DOSE IN SCH ×4 (05:44→22:24)
--- NOTE | 2019-10-07 05:47 | NUR ---
IS AT BEDSIDE. EDUCATED ON USE. RETURNED DEMONSTRATION. 1500ML.
--- NOTE | 2019-10-07 06:58 | NUR ---
PAGED CD REACTOR OPERATOR HOSPITALIST REGARDING BLOOD PRESSURE OF 179/96MMHG UPON REASSESSMENT. AWAITING CALL BACK.
[2019-10-07] MEDS ORDERED: hydrALAZINE HCL 20 MG/ML VL IV ONE (07:15)
--- NOTE | 2019-10-07 07:20 | NUR ---
Respiratory note: HR 75, RR 14, SPO2 92% ON 2 L NC, BS CLEAR AND DIMINISHED. UNABLE TO ADMINISTER MDI. MDI NOT AVAILABLE FROM PHARMACY. WILL CALL PHARMACY. NO SIGNS OR SYMPTOMS OF RESPIRATORY DISTRESS NOTED AT THIS TIME
[2019-10-07] MEDS ORDERED: FAMOTIDINE 20 MG TAB PO SCH (10:00)
[2019-10-07] MEDS ORDERED: ASCORBIC ACID 1,000 MG TAB PO SCH (10:00)
[2019-10-07] MEDS ORDERED: CHOLECALCIFEROL (VITD3) 1,000UNIT=25mCg TAB PO SCH (10:00)
[2019-10-07] MEDS ORDERED: ZINC SULFATE 220mg CAP or TAB PO SCH (10:00)
[2019-10-07] MEDS ORDERED: AZITHROMYCIN 500MG/ 250ML 250 ML IV SCH (10:00)
[2019-10-07] MEDS ORDERED: ENOXAPARIN SOD 40 MG/0.4 ML SYRINGE SC SCH ×2 (10:00)
[2019-10-07] MEDS: methylPREDNISolone SOD SUCC 125 MG/2 ML VL IV SCH (10:11)
[2019-10-07] MEDS ORDERED: SODIUM CHLORIDE 0.9% 500 ML IV ONE (11:00)
[2019-10-07] MEDS ORDERED: amLODIPine BESYLATE 5 MG TAB PO SCH (11:00)
[2019-10-07] MEDS ORDERED: METOPROLOL TARTRATE 25 MG TAB PO ONE (13:15)
[2019-10-07] MEDS ORDERED: hydrALAZINE HCL 20 MG/ML VL IV PRN (13:15)
--- NOTE | 2019-10-07 14:01 | NUR ---
Assessment Patient is a 69-year-old male who is alert and oriented. Prior to admission patient lived home alone and functioned independently. Patient informed me he can care for his own ADLs. Per patient he will return home to his prior living arrangements post discharge and family will transport him home. Patient informed me he has a nebulizer and home oxygen for home use. Advised patient there is a social service consult for safety evaluation. Informed patient clinical information will be faxed to [facility]. Informed patient he has a right to participate in all discharge planning. Patient verbalized understanding and agreed to discharge plan. Placed call to Tube Balancer Anaid with [facility] to informed her there is an order for home health. Per Consuelo with [facility] patient has been accepted and service to start within 24-48hrs upon d/c day. Addendum: 10/07/19 at 1402 by BARBY NOLAN Amended: Links added.
--- NOTE | 2019-10-07 14:10 | NUR ---
Respiratory note: HR 93, RR 16, SPO2 98% ON 2 L NC. MDI DONE BY RT,PT TOLERATED WELL. NO SIGNS OR SYMPTOMS OF RESPIRATORY DISTRESS NOTED AT THIS TIME.
--- NOTE | 2019-10-07 15:18 | NUR ---
Patient transferred from [facility] to [address] Patient brought to unit with all personal belongings, to room. Patient is alert and oriented to person, place, time, and situation. No complaints at this time. Patient oriented to room. Will continue to monitor.
--- NOTE | 2019-10-07 15:50 | NUR ---
Respiratory note: ATTEMPTING TO REACH DR Quincy HYMAN TO INQUIRE ABOUT DISCONTINUING DUPLICATE MED NEB ORDERS. CALL PLACED, AWAITING CALL BACK.
[2019-10-07 16:22] VITALS: BP 186/93
[2019-10-07 17:38] VITALS: BP 153/78
--- NOTE | 2019-10-07 17:45 | NUR ---
Lawn Mower Sharpener rounded Dr. Lyn rounded on patient.
[2019-10-07] MEDS ORDERED: IPRATROPIUM BROM 0.5 MG/2.5ML INH SOL NEB SCH (18:00)
[2019-10-07] MEDS ORDERED: LEVALBUTEROL HCL 1.25 MG/3 ML NEB NEB SCH (18:00)
[2019-10-07] MEDS ORDERED: MET25T PO (19:10)
[2019-10-07] MEDS ORDERED: IPR002IS NEB (19:10)
[2019-10-07] MEDS ORDERED: LEVA1.2518 NEB (19:10)
[2019-10-07] MEDS ORDERED: PRED20TA2 PO (19:10)
[2019-10-07] MEDS ORDERED: AML5T PO (19:10)
[2019-10-07] MEDS ORDERED: LEVO500T21 PO (19:10)
[2019-10-07 19:42] LABS: Calcium 8.6 mg/dL (8.5-10.1)
--- NOTE | 2019-10-07 20:00 | NUR ---
Opening Shift Note Assumed care of patient, awake and alert. No S/S of distress/SOB or pain. Instructed on POC and to call for assist PRN, will continue to monitor for changes Q1hr and PRN. Bed locked in lowest position and bed rails up x2. Call light within reach.
--- NOTE | 2019-10-07 21:49 | NUR ---
Spoke with Dr. Lyn. Riki stated that he is stable from his standpoint and cleared for discharge.
[2019-10-07 22:00] VITALS: BP 158/74
[2019-10-07] MEDS ORDERED: METOPROLOL TARTRATE 25 MG TAB PO SCH (22:00)
[2019-10-07] MEDS ORDERED: methylPREDNISolone SOD SUCC 40 MG/ML VL IV SCH (22:00)
--- NOTE | 2019-10-07 22:24 | NUR ---
PT CHECKED FOR MDI. PT STATED HE SELF ADMINISTERED MDI WITH AERO CHAMBER. PT IS BEING D/C'D AND IS RESTING WITH NO ACUTE DISTRESS NOTED.
[2019-10-07 22:54] VITALS: BP 158/74
--- NOTE | 2019-10-07 23:56 | NUR ---
Patient leaving unit at this time with taxi voucher and oxygen tank. Patient being taken down to taxi via wheelchair. Patient alert, oriented and aware of discharge. IV discontinued and all bands taken off. Patient educated and all questions answered.
== END 2019-10-07 23:56 | disposition home health service (06) | DRG 190 ==
LOC: ER 19:46 → EDUNIT# 19:46 → TELE 19:47 → TELE-EAST 23:18
PROVIDERS: ADMIT Nurse Practitioner; ATTEND Hospitalist
DX: J44.1 Chronic obstructive pulmonary disease with (acute) exacerbation (principal); J18.9 Pneumonia, unspecified organism; J45.901 Unspecified asthma with (acute) exacerbation; J96.10 Chronic respiratory failure, unspecified whether with hypoxia or hypercapnia; J44.0 Chronic obstructive pulmonary disease with (acute) lower respiratory infection; I10 Essential (primary) hypertension; Z20.828 Contact with and (suspected) exposure to other viral communicable diseases; Z82.49 Family history of ischemic heart disease and other diseases of the circulatory system; Z82.3 Family history of stroke; Z91.19 Patient's noncompliance with other medical treatment and regimen; Z99.81 Dependence on supplemental oxygen
CPT/HCPCS: 36415; 71045; 80048; 80053; 82728; 83605; 83615; 83735; 84443; 84484; 85025; 85379; 86141; 87040; 87070; 87081; 87804; 87880; 94640; 96365; 96375; G0378; J1956

== ENCOUNTER 2019-11-21 10:50 | Emergency (ER) | payer OTHER ==
[~2019-11-21] VITALS: Ht 182.9 cm; Wt 95.3 kg
[~2019-11-21 10:50] MED LIST changes: +AML5T PO; +LEVO500T21 PO; +MET25T PO; +PRED20TA2 PO
[2019-11-21] MEDS ORDERED: methylPREDNISolone SOD SUCC 125 MG/2 ML VL IM ONE (11:30)
[2019-11-21] MEDS ORDERED: IPRATROPIUM BROM 0.5 MG/2.5ML INH SOL NEB ONE (11:30)
[2019-11-21] MEDS ORDERED: ALBUTEROL SULF 2.5 MG/0.5ML(0.5%) NEB SOLN NEB ONE (11:30)
[2019-11-21 12:31] LABS: Basophils # (auto) 0.1 10 ^3/uL (0-0.2); Basophils % (auto) 0.9 % (0.0-2.0); Eosinophils # (auto) 0.8 10 ^3/uL (0-0.8); Lymphocytes # (auto) 1.1 10 ^3/uL (0.4-5.4); Monocytes # (auto) 0.7 10 ^3/uL (0-1.3); Neutrophils # (auto) 5.7 10 ^3/uL (1.6-8.6)
[2019-11-21 12:33] LABS: Eosinophils % (auto) 9.3 % (0.0-7.0); Hemoglobin 14.8 g/dL (13.5-17.5); Lymphocytes % (auto) 12.8 % (10.0-50.0); Mean Corpuscular Hemoglobin 35.2 pg (28.0-32.0); Mean Corpuscular Hgb Conc. 33.7 g/dL (32.0-36.0); Mean Corpuscular Volume 104.5 fL (80.0-100.0); Monocytes % (auto) 8.2 % (0.0-12.0); Neutrophils % (auto) 68.8 % (37.0-80.0); Nucleated Red Blood Cells % 0.2 %; Platelet Count (auto) 361 10^3/uL (140-450); Red Blood Cells 4.21 10^6/uL (4.5-5.90); Red Cell Distribution Width 17.1 % (11.8-14.3); White Blood Cell 8.2 10^3/uL (4.4-10.8)
[2019-11-21 12:44] LABS: Albumin 3.7 g/dL (3.4-5.0); Calcium 8.5 mg/dL (8.5-10.1); Potassium 4.1 mmol/L (3.5-5.1)
[2019-11-21] MEDS ORDERED: methylPREDNISolone SOD SUCC 125 MG/2 ML VL IV ONE (12:45)
[2019-11-21 12:46] LABS: BUN/Creatinine Ratio 13.4
[2019-11-21 12:49] LABS: Bilirubin, Total 0.8 mg/dL (0.2-1.0); Total Protein 6.9 g/dL (6.4-8.2)
[2019-11-21 14:06] VITALS: BP 140/71
== END 2019-11-21 14:59 | disposition home or self-care (01) ==
LOC: ER 10:50
DX: J44.1 Chronic obstructive pulmonary disease with (acute) exacerbation (principal)
CPT/HCPCS: 36415; 71045; 80053; 85025; 93005; 94640; 96374; 99283; J2930; J7644

== ENCOUNTER 2019-12-08 15:58 | Inpatient (IN) | payer OTHER ==
[~2019-12-08] VITALS: Ht 182.9 cm; Wt 89.8 kg
[2019-12-08] MEDS ORDERED: methylPREDNISolone SOD SUCC 125 MG/2 ML VL IV ONE (16:45)
[2019-12-08 17:18] LABS: Basophils # (auto) 0.1 10 ^3/uL (0-0.2); Lymphocytes # (auto) 0.9 10 ^3/uL (0.4-5.4); Lymphocytes % (auto) 11.7 % (10.0-50.0)
[2019-12-08 17:19] LABS: Basophils % (auto) 0.9 % (0.0-2.0); Eosinophils # (auto) 0.6 10 ^3/uL (0-0.8); Eosinophils % (auto) 7.6 % (0.0-7.0); Hematocrit 45.5 % (41.0-53.0); Hemoglobin 15.8 g/dL (13.5-17.5); Mean Corpuscular Hemoglobin 36.3 pg (28.0-32.0); Mean Corpuscular Hgb Conc. 34.7 g/dL (32.0-36.0); Mean Corpuscular Volume 104.5 fL (80.0-100.0); Monocytes # (auto) 0.6 10 ^3/uL (0-1.3); Monocytes % (auto) 8.4 % (0.0-12.0); Neutrophils # (auto) 5.4 10 ^3/uL (1.6-8.6); Neutrophils % (auto) 71.4 % (37.0-80.0); Nucleated Red Blood Cells % 0.1 %; Platelet Count (auto) 300 10^3/uL (140-450); Red Blood Cells 4.36 10^6/uL (4.5-5.90); Red Cell Distribution Width 16.5 % (11.8-14.3); White Blood Cell 7.5 10^3/uL (4.4-10.8)
[2019-12-08 17:35] LABS: Alanine Aminotransferase 17 U/L (16-61); Albumin 3.5 g/dL (3.4-5.0); Anion Gap 3 (5-15); Aspartate Aminotransferase 12 U/L (15-37); BUN/Creatinine Ratio 10.5; Blood Urea Nitrogen 12 mg/dL (7-18); Calcium 8.7 mg/dL (8.5-10.1); Carbon Dioxide 30 mmol/L (21-32); Chloride 108 mmol/L (98-107); GFR African American 82 mL/min; GFR Non-African American 68 mL/min; Glucose 121 mg/dL (74-106); Sodium 141 mmol/L (136-145)
[2019-12-08 17:40] LABS: Alkaline Phosphatase 73 U/L (45-117); Bilirubin, Total 0.5 mg/dL (0.2-1.0); Total Protein 7.2 g/dL (6.4-8.2)
[2019-12-08] MEDS ORDERED: ACETAMINOPHEN 325 MG TAB PO PRN (22:15)
[2019-12-08] MEDS ORDERED: NITROGLYCERIN 0.4 MG SL TAB SL PRN (22:15)
[2019-12-08] MEDS ORDERED: ONDANSETRON HCL 4 MG/2 ML VIAL IV PRN (22:15)
[2019-12-08] MEDS ORDERED: MORPHINE SULF INJ 2 MG/ML SYRINGE 1ML IV PRN (22:15)
[2019-12-08] MEDS ORDERED: TEMAZEPAM 15 MG CAP PO PRN (22:15)
[2019-12-08] MEDS ORDERED: METOPROLOL TARTRATE 25 MG TAB PO ONE (22:15)
[2019-12-09] VITALS (7 sets, daily range): BP systolic 133–181; BP diastolic 68–93
--- NOTE | 2019-12-09 00:50 | NUR ---
Telemetry admit from ER AIDA BASS admitted to Telemetry unit. Patient oriented to CHELA BURRELL, primary RN, unit, room, bed, and unit policies regarding patient care and visiting hours. Patient now on continuous telemetry monitoring, tele box 16 and telemetry reading on arrival to unit is sinus rhythm. Patient placed on bedside oxygen 4l nasal cannula , weighed by bedscale and encouraged to call if they need something. All questions and concerns addressed, patient verbalized understanding
[2019-12-09] MEDS ORDERED: ALBUTEROL SULF HFA 90MCG INH 200DOSE IN SCH (06:00)
--- NOTE | 2019-12-09 06:26 | NUR ---
sent MRSA swab
--- NOTE | 2019-12-09 06:50 | NUR ---
Respiratory note: SCHEDULE MDI TX NOT AVAILABLE AT THIS TIME. WILL CONTACT PHARMACY TO OBTAIN MDI FOR 1400 TX.
[2019-12-09 06:58] LABS: BUN/Creatinine Ratio 13.1; Potassium 4.8 mmol/L (3.5-5.1)
[2019-12-09 07:03] LABS: Basophils # (auto) 0 10 ^3/uL (0-0.2); Eosinophils # (auto) 0 10 ^3/uL (0-0.8); Eosinophils % (auto) 0.1 % (0.0-7.0); Hemoglobin 16.2 g/dL (13.5-17.5); Lymphocytes # (auto) 0.4 10 ^3/uL (0.4-5.4); Monocytes # (auto) 0.2 10 ^3/uL (0-1.3)
[2019-12-09 07:05] LABS: Basophils % (auto) 0.2 % (0.0-2.0); Hematocrit 48.9 % (41.0-53.0); Lymphocytes % (auto) 6.5 % (10.0-50.0); Mean Corpuscular Hemoglobin 34.5 pg (28.0-32.0); Mean Corpuscular Hgb Conc. 33.2 g/dL (32.0-36.0); Mean Corpuscular Volume 103.8 fL (80.0-100.0); Monocytes % (auto) 2.8 % (0.0-12.0); Neutrophils # (auto) 5.7 10 ^3/uL (1.6-8.6); Neutrophils % (auto) 90.4 % (37.0-80.0); Nucleated Red Blood Cells % 0.3 %; Platelet Count (auto) 364 10^3/uL (140-450); Red Blood Cells 4.71 10^6/uL (4.5-5.90); Red Cell Distribution Width 16.3 % (11.8-14.3); White Blood Cell 6.3 10^3/uL (4.4-10.8)
--- NOTE | 2019-12-09 07:25 | NUR ---
Opening shift noted Assumed care of patient from NOC ANTONINO Goss. Patient is AOX4 no s/s of distress noted. Bed is in lowest locked position, side rails up x2, and call light is within reach. Updated patient on plan of care and patient verbalized understanding. Will continue to monitor Q1hr and PRN.
[2019-12-09] MEDS: METOPROLOL TARTRATE 25 MG TAB PO SCH ×2 (09:05→22:12)
[2019-12-09] MEDS: FAMOTIDINE 20 MG TAB PO SCH ×2 (09:06→22:12)
[2019-12-09] MEDS: ENOXAPARIN SOD 40 MG/0.4 ML SYRINGE SC SCH (09:09)
[2019-12-09] MEDS ORDERED: amLODIPine BESYLATE 5 MG TAB PO SCH (10:00)
[2019-12-09] MEDS ORDERED: methylPREDNISolone SOD SUCC 125 MG/2 ML VL IV SCH (10:00)
--- NOTE | 2019-12-09 10:52 | NUR ---
Report given to ANTONINO Barillas. Updated ANTONINO Barillas that patient is feeling SOB. Vitals are 164/97, 98% oxygenation saturation on 4L of oxygen via nasal cannula, and heart rate is 82 BPM. Patient does not have PRN breathing treatments and respiratory is aware.
--- NOTE | 2019-12-09 11:00 | NUR ---
PAGED DR. Teddy HYMAN REGARDING BREATHING TREATMENT ORDERS. WILL AWAIT RETURN CALL.
--- NOTE | 2019-12-09 11:02 | NUR ---
TRANSFER FROM [facility] PATIENT TRANSFERRED TO BED VIA WHEELCHAIR. NO S/S OF DISTRESS, PATIENT C/O OF SOB CONNECTED TO 4L O2 VIA NC, INFORMED PATIENT THAT DR WAS PAGED FOR BREATHING TREATMENTS. BED LOCKED IN LOWEST POSITION, SIDE RAILS UP X2, CALL LIGHT WITHIN REACH. WILL CONTINUE TO MONITOR.
[2019-12-09] MEDS ORDERED: amLODIPine BESYLATE 5 MG TAB PO ONE (11:30)
[2019-12-09] MEDS: IPRATROPIUM BROM 0.5 MG/2.5ML INH SOL NEB PRN ×3 (12:16→22:03)
[2019-12-09] MEDS: ALBUTEROL SULF 2.5 MG/0.5ML(0.5%) NEB SOLN NEB PRN ×3 (12:16→22:03)
--- NOTE | 2019-12-09 12:26 | NUR ---
IV insertion IV access obtained, via clean sterile technique by inserting 20 gauge catheter at RIGHT FOREARM after 1 attempt. IV secured properly. No trauma to site. Patient tolerated well. NOTE: []
[2019-12-09] MEDS ORDERED: IOHEXOL 350 MG/ML 100ML IJ ONE (12:43)
--- NOTE | 2019-12-09 12:45 | NUR ---
RAPID INF A/D SWAB SENT TO LAB
[2019-12-09] MEDS ORDERED: levoFLOXacin 500 MG TAB PO ONE (15:00)
[2019-12-09] MEDS ORDERED: MET25T PO (15:14)
[2019-12-09] MEDS ORDERED: PRED20TA2 PO (15:14)
[2019-12-09] MEDS ORDERED: IPR002IS NEB (15:14)
[2019-12-09] MEDS ORDERED: AMLO10TA13 PO (15:14)
[2019-12-09] MEDS ORDERED: ALBUAER3 IN (15:14)
[2019-12-09] MEDS ORDERED: LEVO500T21 PO (15:14)
[2019-12-09] MEDS ORDERED: LEVA1.2518 NEB (15:14)
--- NOTE | 2019-12-09 16:56 | NUR ---
PAGED MD Cynthia HYMAN REGARDING DISCHARGE HOLD. PER LUNCHROOM MOTHER BARBY, THERE IS NO ASSISTED AVAILABLE FOR TONIGHT, PATIENT WOULD HAVE TO BE DISCHARGED TOMORROW MORNING. WILL UPDATE MD WHEN HE RETURNS CALL.
--- NOTE | 2019-12-09 17:51 | NUR ---
Assessment Patient is a 69-year-old male who is alert and oriented. Patient did not cooperate well when assessing him. Patient informed me he has been going through a lot. Patient informed me he will be going to a [facility] tomorrow but has no where to go tonight. Patient informed me he is having difficulties breathing and does not feel safe to be discharge tonight. Provided information to clothes closet and meal prior to discharge. Patient accepted resources. Offered patient taxi voucher within 30 miles and pt agreed. Completed homeless assessment and patient signed homeless waiver. Will follow-up and provide intervention as appropriate. Informed ANTONINO Buitrago. Addendum: 12/09/19 at 1800 by BARBY NOLAN Amended: Links added.
--- NOTE | 2019-12-09 18:00 | NUR ---
CHARGE NURSE MADE AWARE OF DISCHARGE HOLD
[2019-12-10] MEDS: ALBUTEROL SULF 2.5 MG/0.5ML(0.5%) NEB SOLN NEB PRN ×2 (02:53→08:37)
[2019-12-10] MEDS: IPRATROPIUM BROM 0.5 MG/2.5ML INH SOL NEB PRN ×2 (02:53→08:37)
[2019-12-10 05:00] VITALS: BP 131/60
[2019-12-10 06:01] LABS: Basophils # (auto) 0.1 10 ^3/uL (0-0.2); Eosinophils # (auto) 0.1 10 ^3/uL (0-0.8); Lymphocytes # (auto) 0.8 10 ^3/uL (0.4-5.4); Mean Corpuscular Hemoglobin 34.9 pg (28.0-32.0); White Blood Cell 7.4 10^3/uL (4.4-10.8)
[2019-12-10 06:04] LABS: Basophils % (auto) 0.8 % (0.0-2.0); Eosinophils % (auto) 0.7 % (0.0-7.0); Hemoglobin 14.2 g/dL (13.5-17.5); Lymphocytes % (auto) 10.9 % (10.0-50.0); Mean Corpuscular Hgb Conc. 33.7 g/dL (32.0-36.0); Mean Corpuscular Volume 103.6 fL (80.0-100.0); Monocytes # (auto) 0.8 10 ^3/uL (0-1.3); Monocytes % (auto) 11.2 % (0.0-12.0); Neutrophils # (auto) 5.7 10 ^3/uL (1.6-8.6); Neutrophils % (auto) 76.4 % (37.0-80.0); Platelet Count (auto) 287 10^3/uL (140-450); Red Blood Cells 4.06 10^6/uL (4.5-5.90)
[2019-12-10 06:23] LABS: BUN/Creatinine Ratio 22.8; Calcium 8.3 mg/dL (8.5-10.1); Potassium 3.9 mmol/L (3.5-5.1)
[2019-12-10 09:00] VITALS: BP_SYST 126; BP_SYST 136; BP_DIAS 56; BP_DIAS 75
[2019-12-10] MEDS ORDERED: predniSONE 20 MG TAB PO SCH (10:00)
[2019-12-10] MEDS ORDERED: amLODIPine BESYLATE 5 MG TAB PO SCH (10:00)
[2019-12-10] MEDS ORDERED: levoFLOXacin 500 MG TAB PO SCH (10:00)
[2019-12-10] MEDS: FAMOTIDINE 20 MG TAB PO SCH (10:43)
[2019-12-10] MEDS: METOPROLOL TARTRATE 25 MG TAB PO SCH (10:44)
[2019-12-10] MEDS: ENOXAPARIN SOD 40 MG/0.4 ML SYRINGE SC SCH (10:45)
--- NOTE | 2019-12-10 11:21 | NUR ---
LEFT MESSAGE WITH MD FOR UPDATE ON DISCHARGE STATUS AND CHANGE IN RHYTHM. AWAITING RETURN CALL.
--- NOTE | 2019-12-10 12:19 | NUR ---
LEFT MESSAGE WITH DR Cynthia HYMAN ABOUT PATIENT PRESCRIPTION AND SS WORKING ON PLACEMENT WELL PREVIOUS CONCERNS. AWAITING RETURN PHONE CALL.
[2019-12-10 12:32] VITALS: BP 141/97
--- NOTE | 2019-12-10 12:52 | NUR ---
SPOKE WITH MD ABOUT PATIENT'S RHYTHM, PHARMACY AND CONTACT WITH [facility] EMBOSSER REGARDING THE PATIENT'S CASE. MD INFORMED ME HE WOULD LIKE THE PATIENT TO F/U W DR LOERA AND HE WOULD CALL ME BACK. UPDATED PATIENT,HE IS AWARE.
--- NOTE | 2019-12-10 13:09 | NUR ---
DR. FORDE AT BEDSIDE CONSULTED WITH PATIENT AT REQUEST OF DR Cynthia HYMAN FOR PATIENT'S RHYTHM CHANGE THIS MORNING. INFORMED HIM THAT PATIENT HAD NOT HAD ANY COMPLAINTS OF SOB, CP, OR DIZZINESS FOR ME TODAY. DR FORDE GAVE VERBAL CLEARANCE THAT THE PATIENT COULD DISCHARGE TODAY AND SHOULD FOLLOW UP HIM IN FOUR WEEKS FOR A CARDIAC STRESS TEST. PATIENT TOOK DR FORDE'S CARD AND VERBALIZED UNDERSTANDING.
--- NOTE | 2019-12-10 13:13 | NUR ---
SPOKE WITH MICHAEL APPROXIMATELY 1230 ABOUT THE PATIENT WHO HAS EXPRESSED TO ME THAT HE IS UNABLE TO FIND AN ACCEPTING [facility] AND HE IS CONCERNED THAT IF A [facility] DROPS HIM OFF AT ONE AND THEY DON'T ACCEPT HIM WHAT HE WILL DO THEN. MICHAEL INFORMED ME SHE WOULD EMAIL BARBY TO INQUIRE WHO MIGHT HAVE ROOM AT THIS TIME AND THAT ALSO ALL SHELTERS ARE [facility] AWAITING TO HEAR BACK FROM .
--- NOTE | 2019-12-10 16:13 | NUR ---
PATIENT IS AWAITING D/C TO [facility]. TAXI VOUCHER IS IN PATIENTS CHART. DC INFORMATION ON F/U, DIET, ACTIVITY, MEDICATIONS ALL BEEN GIVEN TO PATIENT. INSTRUCTED TO RETURN TO ED IF S/S WORSEN. TELE REMOVED. IV REMOVED AND DRESSING PLACED NO OVERT S/S BLEEDING. PATIENT VERBALIZED UNDERSTANDING ABOUT THE EDUCATION THAT HAS BEEN RECEIVED. PATIENT IN A/OX4 AND VS WNL 99.1, 81HR, 20. 136/75, 91% ON ROOM AIR. WAITING FOR [facility] TO BRING UP PATIENTS MEDICATION. SPOKE WITH PHARMACY [facility] AND THEY INFORMED ME THEY WOULD CALL ME BACK AND THEN BRING THE PATIENT HIS MEDICATION.
== END 2019-12-10 16:40 | disposition home or self-care (01) | DRG 189 ==
LOC: ER 15:58 → TELE 15:59 → TELE-EAST 23:50 → TELE-CENTR 12-09 11:01
PROVIDERS: ADMIT Nurse Practitioner; ATTEND Internal Medicine
DX: J96.21 Acute and chronic respiratory failure with hypoxia (principal); J44.1 Chronic obstructive pulmonary disease with (acute) exacerbation; Z20.828 Contact with and (suspected) exposure to other viral communicable diseases; I10 Essential (primary) hypertension; E66.9 Obesity, unspecified; F17.210 Nicotine dependence, cigarettes, uncomplicated; Z68.26 Body mass index [BMI] 26.0-26.9, adult; Z59.0 Homelessness; Z82.3 Family history of stroke; Z72.89 Other problems related to lifestyle
CPT/HCPCS: 36415; 71045; 71275; 80048; 80053; 82728; 83605; 83615; 83880; 84484; 85025; 85379; 87081; 87804; 93005; 93970; 94640; 96374; G0378